=== PATIENT | male | born 1970 | race Caucasian/White ===

== ENCOUNTER 2020-05-30 17:48 | Outpatient (REF) | payer OTHER, SELFPAY ==
--- NOTE | 2020-05-30 17:49 | MR_ITS ---
EXAMINATION: MR ELBOW WITHOUT CONTRAST, LEFT CLINICAL INFORMATION: Pain in left upper arm COMPARISON: None TECHNIQUE: MR of the elbow without contrast was performed on a 1.5 Gianna axial scanner. FINDINGS: BONE AND JOINTS: No evidence of fracture. No effusion. No focal cartilage defects seen. Areas of mild increased T2, intermediate T1 signal in the radius, probably reflecting areas of red marrow. TENDONS AND MUSCLES: There is thinning of the biceps tendon diffusely, extending from the level of the myotendinous region to the biceps insertion. There are associated areas of irregularity. The findings raise concern for partial-thickness tearing of the tendon. This is of indeterminate age. Brachialis, triceps tendons intact. Common flexor and common extensor tendon origins are intact. No evidence of muscle tear. LIGAMENTS: Intact ULNAR NERVE: Within normal limits MR/MR elbow LT wo con IMPRESSION: 1. Abnormal findings of the biceps tendon, has the appearance of of partial-thickness tearing. This of indeterminate age. See details above. 2. Ligaments are intact. 3. Signal changes in the radius, probably reflecting areas of red marrow.
== END 2020-05-30 17:49 | disposition home or self-care (01) ==
LOC: HO.MRI 17:48
PROVIDERS: Visit Provider Hospitalist
DX: M79.622 Pain in left upper arm (principal)
CPT/HCPCS: 73221

== ENCOUNTER → 2020-06-06 10:00 | Outpatient (BNVA) | payer OTHER, SELFPAY | PROVIDERS: Visit Provider Orthopaedic Surgery | DX: S46.212A Strain of muscle, fascia and tendon of other parts of biceps, left arm, initial encounter (principal) | CPT/HCPCS: 99202 ==

== ENCOUNTER 2020-06-19 08:15 | Emergency (ER) | payer OTHER, SELFPAY ==
--- NOTE | 2020-06-19 08:28 | ECG_ITS ---
Test Reason : WEAKNESS Blood Pressure : / mmHG Vent. Rate : 101 BPM Atrial Rate : 101 BPM P-R Int : 144 ms QRS Dur : 078 ms QT Int : 328 ms P-R-T Axes : 024 -01 029 degrees QTc Int : 425 ms Sinus tachycardia Possible Inferior infarct , age undetermined Borderline ECG When compared with ECG of 06-FEB-2010 11:31, No significant change was found Referred By: Yanelis Ballard Electronically Signed By:ARELY CURIEL MD
--- NOTE | 2020-06-19 08:28 | XR_ITS ---
EXAMINATION: XR CHEST CLINICAL INFORMATION: Shortness of breath, chest tightness and cough and fever COMPARISON: Chest 06/09/2015 TECHNIQUE: Frontal view of the chest was obtained. FINDINGS: The lungs are hypoexpanded with scattered patchy densities in right midlung, right lower lobe, lingula and left lower lobe suspicious for developing infiltrates. No pleural effusion or pneumothorax seen. Heart size and pulmonary vascularity is normal. No gross bony abnormality. XR/XR chest 1V IMPRESSION: Hypoexpanded lungs with bilateral patchy opacities suspicious for developing infiltrates.
--- NOTE | 2020-06-19 08:33 | ED_ITS ---
HPI - URI/Sore Throat General Chief Complaint: Fever Stated Complaint: headache,dizzysob Time Seen by Provider: 06/19/20 08:21 Source: patient Mode of arrival: ambulatory Limitations: no limitations History of Present Illness HPI Narrative: 49 y/o male with history of DM, HTN, asthma presents with 4 days of fevers, body aches, cough. He presents today with chest tightness and SOB. He reports his symptoms are worsening. He denies sick contacts but his works here at the hospital. He denies N/V, abd pain but admits to decreased appetite and decreased PO intake. MD elicited complaint: fever, cough and nasal congestion Pertinent past history: asthma Onset (ago): day(s) (4) Consistency: constant Severity: moderate Able to tolerate fluids by mouth: Yes Exacerbating factors: exertion Relieving factors: nothing Associated symptoms: fever, chills, myalgias, headache, nasal congestion, cough, chest pain and shortness of breath Treatments prior to arrival: none Related Data Home Medications Medication Instructions Recorded Confirmed amlodipine 10 mg tablet 10 mg PO DAILY 05/18/20 05/18/20 atorvastatin 20 mg tablet 20 mg PO DAILY 05/18/20 05/18/20 baclofen 20 mg tablet 20 mg PO BID 05/18/20 05/18/20 bupropion HCl 150 mg tablet,12 hr 150 mg PO BID 05/18/20 05/18/20 sustained-release dulaglutide 1.5 mg/0.5 mL 3 mg TOPICAL QWEEK 05/18/20 05/18/20 subcutaneous pen injector ibuprofen 600 mg tablet 600 mg PO TID 05/18/20 05/18/20 metformin 500 mg tablet 500 mg PO BID 05/18/20 05/18/20 nabumetone 500 mg tablet 500 mg PO BID 05/18/20 05/18/20 Previous Rx's Medication Instructions Recorded tramadol 50 mg tablet 50 mg PO Q6-8H PRN #14 tab 05/18/20 diclofenac sodium 75 mg 75 mg PO BID #60 tab 06/06/20 tablet,delayed release albuterol sulfate 1 inh INHALATION QID PRN #6.7 g 06/19/20 azithromycin [Zithromax Z-Stevie] See Rx Instructions .ROUTE 06/19/20 .COMPLEX #6 tab Allergies Allergy/AdvReac Type Severity Reaction Status Date / Time Penicillins [PENICILLINS] Allergy Severe ANAPHALAXIS Unverified 03/16/20 16:28 ciprofloxacin [CIPROFLOXACIN] Allergy Intermediate RASH Unverified 03/16/20 16:28 metronidazole [METRONIDAZOLE] Allergy Mild RASH Unverified 03/16/20 16:28 ibuprofen [IBUPROFEN] Allergy Unknown UNKNOWN, Unverified 03/16/20 16:28 HISTORY OF ULCERS antibiotic Allergy Unknown Uncoded 05/07/19 00:00 Review of Systems Review of Systems: Constitutional: + Fever, +Chills ENT/Mouth: No sore throat, No Rhinorrhea, No Swallowing Difficulty Eyes: No Eye Pain, No Swelling, No Redness Cardiovascular: + Chest Pain, + SOB, No Orthopnea, No Edema Respiratory: + Cough, No Sputum, No Wheezing, + dyspnea Gastrointestinal: No Nausea, No Vomiting, No Diarrhea, No abdominal Pain Genitourinary: No Dysuria, No Urinary Frequency, No Hematuria Musculoskeletal: + joint pain, + Myalgias Skin: No Skin Lesions, No rash Neuro: No Weakness, No Numbness, + Dizziness, + Headache Psych: No Anxiety/Panic, No Depression Heme/Lymph: No Bruising, No Lymphadenopathy Endocrine: No Polyuria, No Polydipsia PMFSH Past Medical History Attestation statement: The following information was validated with the patient. Medical History (Updated 06/19/20 @ 12:30 by ROMELIA Craig) Diabetes Gout Hypertension Internal derangement of left knee Neuropathy Post-traumatic osteoarthritis of right knee Right knee pain Surgical History (Updated 06/02/20 @ 09:46 by Poornima Marquez CMA) H/O right knee surgery Family History Family History (Updated 06/02/20 @ 09:47 by Poornima Marquez CMA) Mother No problems noted. Father No problems noted. Social History Social History (Updated 06/02/20 @ 09:47 by Poornima Marquez CMA) Advance Directives: No Advance Directives Information Provided: No Current occupational status: unemployed Current occupation: Right Handed Physical Exam Vital Signs: Vital Signs: Last Vital Signs Temp 100.3 F 06/19/20 08:36 Pulse 84 06/19/20 12:37 Resp 18 06/19/20 12:37 BP 123/77 06/19/20 12:37 Pulse Ox 96 06/19/20 12:37 Body Mass Index 34.4 Appearance: Alert. Oriented X3. No acute distress. ENT: Pharynx normal. Neck: Normal inspection. Neck supple. CVS: Normal heart rate and rhythm. Pulses normal. Respiratory: Mild respiratory distress, coarse throughout with mild expiratory w heeze, increased RR, speaks in 3-4 word sentences Abdomen: Soft and nontender. +BS x4 Skin: Skin warm and dry. Normal skin color. Normal skin turgor. No rashes. Extremities: No lower extremity edema. Negative Jose's sign Neuro: Oriented X 3. No motor deficit. No sensory deficit. Course Course Course Narrative: 49 y/o male presenting with fevers, cough, SOB, body aches. Concern for COVID-19 vs influenza. Will get lab workup, EKG and CXR. He reports chest tightness so need to r/o ACS. Risk factors include DM and HTN. Reevaluation(s) Reevaluation #1: CXR shows patchy opacities concerning for developing infiltrates. Found to be COVID positive. Infiltrates consistent with viral pneumonia, not bacterial. Reevaluation #2: Tachycardia resolved, now 80-90's. SpO2 97% on room air. Repeat troponin pending (initial 13) - doubt ACS. EKG without ishcemic changes. Anticip ate d/c home. Reevaluation #3: Troponin trended down. Patient is stable for discharge. Patient counseled on diagnosis and warning signs to return to the hospital. MDM - URI/Sore Throat Differential Diagnosis Differential diagnosis: Likely upper respiratory infection, viral infection, bronchitis and influenza Medical Records Attestation: I reviewed the patient's medical records. Lab Data Attestation: I reviewed the patient's lab results. Result diagrams: 06/19/20 09:21 06/19/20 09:21 Labs: Lab Results 06/19/20 06/19/20 06/19/20 Range/Units 09:21 09:21 09:21 WBC 4.9 (4.8-10.8) X10*3/uL RBC 5.57 (4.60-5.80) X10*6/uL Hgb 14.6 (14.0-18.0) g/dl Hct 45.7 (42-52) % MCV 82.0 (80-98) fL MCH 26.2 L (27.0-33.0) pg MCHC 31.9 (31.0-36.0) g/dl RDW 14.0 (11.0-16.0) % Plt Count 228 (160-400) X10*3/uL MPV 11.2 (9.4-12.4) fL Immature Gran % (Auto) 0.2 (0.0-0.4) % Neut % (Auto) 62.6 (45-73) % Lymph % (Auto) 31.3 (20-40) % Converse % (Auto) 5.5 (2-11) % Eos % (Auto) 0.4 (0-4) % Baso % (Auto) 0.0 (0-2) % Lymph # (Auto) 1.5 (1.2-4.9) X10*3/uL Converse # (Auto) 0.3 (0.1-1.2) X10*3/uL Eos # (Auto) 0.0 (0.0-0.4) X10*3/uL Baso # (Auto) 0.0 (0.0-0.2) X10*3/uL Abs Immat Gran (auto) 0.01 (0.00-0.03) X10*3/uL Absolute Neuts (auto) 3.1 (2.0-8.3) X10*3/uL Absolute Nucleated RBC 0.000 (0.0-0.012) X10*3/uL Nucleated RBC % (auto) 0.0 (0.0-0.2) /100WBC D-Dimer 220 NG/ML Hold Blue Top SEE NOTE Sodium 136 (135-145) mmol/L Potassium 3.8 (3.3-5.1) mmol/l Chloride 101 (96-108) mmol/L Carbon Dioxide 26 (22-29) mmol/L Anion Gap 13 (12-20) BUN 11 (9-16) mg/dL Creatinine 1.28 (0.5-1.4) mg/dL Estim Creat Clear Calc 76.8 Estimated GFR 59 Random Glucose 228 H (60-115) mg/dL Lactic Acid (0.5-2.0) mmol/L Calcium 8.7 (8.4-10.2) mg/dL Magnesium (1.6-2.6) mg/dL Ferritin 346 H (20-250) ng/mL Total Bilirubin (0.0-1.0) mg/dL Direct Bilirubin (0.0-0.5) mg/dL AST (5-37) U/L ALT (0-40) U/L Alkaline Phosphatase (39-117) U/L Lactate Dehydrogenase (118-273) U/L Troponin I High Sens (<3.5-35.0) ng/L C-Reactive Protein 9.53 H (< or = 0.50) mg/dL Total Protein (6.5-8.0) g/dL Albumin (3.5-5.0) g/dL Procalcitonin ng/mL Coronavirus (PCR) Influenza Type A (PCR) Influenza Type B (PCR) RSV RNA Qual (PCR) 06/19/20 06/19/20 06/19/20 Range/Units 09:21 09:21 09:21 WBC (4.8-10.8) X10*3/uL RBC (4.60-5.80) X10*6/uL Hgb (14.0-18.0) g/dl Hct (42-52) % MCV (80-98) fL MCH (27.0-33.0) pg MCHC (31.0-36.0) g/dl RDW (11.0-16.0) % Plt Count (160-400) X10*3/uL MPV (9.4-12.4) fL Immature Gran % (Auto) (0.0-0.4) % Neut % (Auto) (45-73) % Lymph % (Auto) (20-40) % Converse % (Auto) (2-11) % Eos % (Auto) (0-4) % Baso % (Auto) (0-2) % Lymph # (Auto) (1.2-4.9) X10*3/uL Converse # (Auto) (0.1-1.2) X10*3/uL Eos # (Auto) (0.0-0.4) X10*3/uL Baso # (Auto) (0.0-0.2) X10*3/uL Abs Immat Gran (auto) (0.00-0.03) X10*3/uL Absolute Neuts (auto) (2.0-8.3) X10*3/uL Absolute Nucleated RBC (0.0-0.012) X10*3/uL Nucleated RBC % (auto) (0.0-0.2) /100WBC D-Dimer NG/ML Hold Blue Top Sodium (135-145) mmol/L Potassium (3.3-5.1) mmol/l Chloride (96-108) mmol/L Carbon Dioxide (22-29) mmol/L Anion Gap (12-20) BUN (9-16) mg/dL Creatinine (0.5-1.4) mg/dL Estim Creat Clear Calc Estimated GFR Random Glucose (60-115) mg/dL Lactic Acid (0.5-2.0) mmol/L Calcium (8.4-10.2) mg/dL Magnesium 2.0 (1.6-2.6) mg/dL Ferritin (20-250) ng/mL Total Bilirubin 0.3 (0.0-1.0) mg/dL Direct Bilirubin 0.2 (0.0-0.5) mg/dL AST 22 (5-37) U/L ALT 28 (0-40) U/L Alkaline Phosphatase 103 (39-117) U/L Lactate Dehydrogenase 206 (118-273) U/L Troponin I High Sens 13.0 (<3.5-35.0) ng/L C-Reactive Protein (< or = 0.50) mg/dL Total Protein 7.5 (6.5-8.0) g/dL Albumin 4.0 (3.5-5.0) g/dL Procalcitonin 0.10 ng/mL Coronavirus (PCR) Influenza Type A (PCR) Influenza Type B (PCR) RSV RNA Qual (PCR) 06/19/20 06/19/20 06/19/20 Range/Units 09:21 09:21 09:38 WBC (4.8-10.8) X10*3/uL RBC (4.60-5.80) X10*6/uL Hgb (14.0-18.0) g/dl Hct (42-52) % MCV (80-98) fL MCH (27.0-33.0) pg MCHC (31.0-36.0) g/dl RDW (11.0-16.0) % Plt Count (160-400) X10*3/uL MPV (9.4-12.4) fL Immature Gran % (Auto) (0.0-0.4) % Neut % (Auto) (45-73) % Lymph % (Auto) (20-40) % Converse % (Auto) (2-11) % Eos % (Auto) (0-4) % Baso % (Auto) (0-2) % Lymph # (Auto) (1.2-4.9) X10*3/uL Converse # (Auto) (0.1-1.2) X10*3/uL Eos # (Auto) (0.0-0.4) X10*3/uL Baso # (Auto) (0.0-0.2) X10*3/uL Abs Immat Gran (auto) (0.00-0.03) X10*3/uL Absolute Neuts (auto) (2.0-8.3) X10*3/uL Absolute Nucleated RBC (0.0-0.012) X10*3/uL Nucleated RBC % (auto) (0.0-0.2) /100WBC D-Dimer NG/ML Hold Blue Top Sodium (135-145) mmol/L Potassium (3.3-5.1) mmol/l Chloride (96-108) mmol/L Carbon Dioxide (22-29) mmol/L Anion Gap (12-20) BUN (9-16) mg/dL Creatinine (0.5-1.4) mg/dL Estim Creat Clear Calc Estimated GFR Random Glucose (60-115) mg/dL Lactic Acid 1.6 (0.5-2.0) mmol/L Calcium (8.4-10.2) mg/dL Magnesium (1.6-2.6) mg/dL Ferritin (20-250) ng/mL Total Bilirubin (0.0-1.0) mg/dL Direct Bilirubin (0.0-0.5) mg/dL AST (5-37) U/L ALT (0-40) U/L Alkaline Phosphatase (39-117) U/L Lactate Dehydrogenase (118-273) U/L Troponin I High Sens (<3.5-35.0) ng/L C-Reactive Protein (< or = 0.50) mg/dL Total Protein (6.5-8.0) g/dL Albumin (3.5-5.0) g/dL Procalcitonin ng/mL Coronavirus (PCR) Cancelled POSITIVE A Influenza Type A (PCR) Cancelled NEGATIVE Influenza Type B (PCR) Cancelled NEGATIVE RSV RNA Qual (PCR) Cancelled NEGATIVE 06/19/20 Range/Units 12:20 WBC (4.8-10.8) X10*3/uL RBC (4.60-5.80) X10*6/uL Hgb (14.0-18.0) g/dl Hct (42-52) % MCV (80-98) fL MCH (27.0-33.0) pg MCHC (31.0-36.0) g/dl RDW (11.0-16.0) % Plt Count (160-400) X10*3/uL MPV (9.4-12.4) fL Immature Gran % (Auto) (0.0-0.4) % Neut % (Auto) (45-73) % Lymph % (Auto) (20-40) % Converse % (Auto) (2-11) % Eos % (Auto) (0-4) % Baso % (Auto) (0-2) % Lymph # (Auto) (1.2-4.9) X10*3/uL Converse # (Auto) (0.1-1.2) X10*3/uL Eos # (Auto) (0.0-0.4) X10*3/uL Baso # (Auto) (0.0-0.2) X10*3/uL Abs Immat Gran (auto) (0.00-0.03) X10*3/uL Absolute Neuts (auto) (2.0-8.3) X10*3/uL Absolute Nucleated RBC (0.0-0.012) X10*3/uL Nucleated RBC % (auto) (0.0-0.2) /100WBC D-Dimer NG/ML Hold Blue Top Sodium (135-145) mmol/L Potassium (3.3-5.1) mmol/l Chloride (96-108) mmol/L Carbon Dioxide (22-29) mmol/L Anion Gap (12-20) BUN (9-16) mg/dL Creatinine (0.5-1.4) mg/dL Estim Creat Clear Calc Estimated GFR Random Glucose (60-115) mg/dL Lactic Acid (0.5-2.0) mmol/L Calcium (8.4-10.2) mg/dL Magnesium (1.6-2.6) mg/dL Ferritin (20-250) ng/mL Total Bilirubin (0.0-1.0) mg/dL Direct Bilirubin (0.0-0.5) mg/dL AST (5-37) U/L ALT (0-40) U/L Alkaline Phosphatase (39-117) U/L Lactate Dehydrogenase (118-273) U/L Troponin I High Sens 12.8 (<3.5-35.0) ng/L C-Reactive Protein (< or = 0.50) mg/dL Total Protein (6.5-8.0) g/dL Albumin (3.5-5.0) g/dL Procalcitonin ng/mL Coronavirus (PCR) Influenza Type A (PCR) Influenza Type B (PCR) RSV RNA Qual (PCR) ECG Data Attestation: I personally reviewed and interpreted this ECG as follows: ECG interpretation date: 06/19/20 ECG interpretation time: 10:04 Interpretation: sinus tachycardia, HR 101, normal, WI interval, normal QRS, no ischemic changes. Discharge Plan Discharge Clinical Impression: COVID-19 Patient Disposition: Home, Self-Care Instructions: COVID-19 (Coronavirus Disease 2019) (ED) Additional Instructions: You were found to be COVID positive today. Your oxygen levels remained normal during your time in the Emergency Department. Rest. Stay hydrated. Take over the counter cold/flu medications as needed for your symptoms. Take Motrin and/or Tylenol as needed for body aches and fevers. Take the prescribed medications as directed. Do not go out in public for the next 10-14 days. Follow up with your doctor this week. If you develop difficulty breathing, shortness of breath, worsening chest pain, or any other concerning symptom come back to the ER for further evaluation. Prescriptions: New azithromycin [Zithromax Z-Stevie] 250 mg tablet See Rx Instructions .ROUTE .COMPLEX Qty: 6 RF: 0 albuterol sulfate 90 mcg/actuation HFA aerosol inhaler 1 inh inhalation QID PRN (Reason: shortness of breath or wheezing) Qty: 6.7 RF: 0 No Action Trulicity 1.5 mg/0.5 mL pen injector 3 mg topical QWEEK RF: 0 nabumetone 500 mg tablet 500 mg PO BID RF: 0 atorvastatin 20 mg tablet 20 mg PO DAILY RF: 0 metformin 500 mg tablet 500 mg PO BID RF: 0 baclofen 20 mg tablet 20 mg PO BID RF: 0 ibuprofen 600 mg tablet 600 mg PO TID RF: 0 amlodipine 10 mg tablet 10 mg PO DAILY RF: 0 bupropion HCl 150 mg tablet sustained-release 12 hr 150 mg PO BID RF: 0 tramadol 50 mg tablet 50 mg PO Q6-8H PRN (Reason: pain) Qty: 14 RF: 0 diclofenac sodium 75 mg tablet,delayed release (DR/EC) 75 mg PO BID Qty: 60 RF: 2 Stand Alone Forms: Work/School Release
[2020-06-19 08:36] VITALS: BP 142/93; PULSE 115; RESP 22; TEMP 37.9; O2SAT 98; BMI 34.4
[2020-06-19] MEDS: 0.9 % Sodium Chloride 1,000 ML 999 ML IVCONT (09:23)
[2020-06-19] MEDS: Acetaminophen 325 MG TABLET 975 MG PO (09:23)
[2020-06-19 09:32] LABS: Eosinophils Percent Auto 0.4 % (0-4); Hematocrit 45.7 % (42-52); Hemoglobin 14.6 g/dl (14.0-18.0); Imm Gran Abs Auto 0.01 X10*3/uL (0.00-0.03); Imm Gran Pct Auto 0.2 % (0.0-0.4); Lymphocytes Absolute Auto 1.5 X10*3/uL (1.2-4.9); Lymphocytes Percent Auto 31.3 % (20-40); Mean Corpuscular HGB Conc 31.9 g/dl (31.0-36.0); Mean Corpuscular Hemoglobin 26.2 pg (27.0-33.0); Mean Platelet Volume 11.2 fL (9.4-12.4); Monocytes Absolute Auto 0.3 X10*3/uL (0.1-1.2); Monocytes Percent Auto 5.5 % (2-11); Neutrophils Absolute Auto 3.1 X10*3/uL (2.0-8.3); Neutrophils Percent Auto 62.6 % (45-73); Platelet Count 228 X10*3/uL (160-400); Red Blood Count 5.57 X10*6/uL (4.60-5.80); White Blood Count 4.9 X10*3/uL (4.8-10.8)
[2020-06-19 09:33] LABS: MANUAL DIFF FLAG NO
[2020-06-19 09:40] LABS: D Dimer 220 NG/ML
[2020-06-19 10:07] LABS: Anion Gap 13 (12-20); Blood Urea Nitrogen 11 mg/dL (9-16); C Reactive Protein 9.53 mg/dL (< or = 0.50); Calcium 8.7 mg/dL (8.4-10.2); Carbon Dioxide 26 mmol/L (22-29); Chloride 101 mmol/L (96-108); Creatinine Clr Calc Pharmacy 76.8; Estimated Glomerular Filt Rate 59; Glucose Random 228 mg/dL (60-115); Lactic Acid 1.6 mmol/L (0.5-2.0); Potassium 3.8 mmol/l (3.3-5.1); Sodium 136 mmol/L (135-145)
[2020-06-19 10:09] LABS: Alanine Aminotransferase 28 U/L (0-40); Alkaline Phosphatase 103 U/L (39-117); Aspartate Amino Transferase 22 U/L (5-37); Bilirubin Direct 0.2 mg/dL (0.0-0.5); Bilirubin Total 0.3 mg/dL (0.0-1.0); Lactate Dehydrogenase 206 U/L (118-273); Total Protein 7.5 g/dL (6.5-8.0)
[2020-06-19 10:22] LABS: Influenza A PCR NEGATIVE (Negative); Influenza B PCR NEGATIVE (Negative); Resp Syncy Virus RNA Qual PCR NEGATIVE (Negative); SARS COV2 PCR INHOUSE POSITIVE (Negative)
[2020-06-19 10:30] LABS: Ferritin 346 ng/mL (20-250)
[2020-06-19 12:37] VITALS: BP 123/77; PULSE 84; RESP 18; O2SAT 96
[2020-06-19 13:01] LABS: Troponin-I High Sensitivity 12.8 ng/L (<3.5-35.0)
== END 2020-06-19 14:09 | disposition home or self-care (01) ==
PROVIDERS: Physician Assistant; Emergency Provider Emergency Medicine; PCP Internal Medicine Geriatric Medicine
DX: U07.1 COVID-19 (principal); I10 Essential (primary) hypertension; E11.9 Type 2 diabetes mellitus without complications; Z79.84 Long term (current) use of oral hypoglycemic drugs; Z79.899 Other long term (current) drug therapy
CPT/HCPCS: 0241U; 36415; 71045; 80048; 80076; 82728; 83605; 83615; 83735; 84145; 84484; 85025; 85379; 86140; 87040; 93005; 96360; 99284

== ENCOUNTER 2022-08-26 15:18 | Inpatient (IN) | payer OTHER, SELFPAY ==
[2022-08-26] VITALS (12 sets, daily range): BP systolic 85–110; BP diastolic 49–77; PULSE 75–89; RESP 14–97; TEMP 36.6–36.8; O2SAT 94–100; BMI 31.3
--- NOTE | ~2022-08-26 | XR_ITS ---
EXAMINATION: XR CHEST CLINICAL INFORMATION: Chest pain. COMPARISON: Chest radiograph 06/19/2020. TECHNIQUE: 2 views of the chest were obtained. FINDINGS: Subtle focal asymmetric airspace opacities in the right lower lobe. Otherwise, clear lungs. No pleural effusion or pneumothorax. Normal appearance of the cardiomediastinal silhouette. No acute osseous abnormalities. The visualized upper abdomen is within normal limits. XR/XR chest 2V IMPRESSION: Subtle asymmetric airspace opacities in the right lower lobe which could be related with subsegmental atelectasis, aspiration or developing infiltrates.
--- NOTE | ~2022-08-26 | CT_ITS ---
EXAMINATION: CT CHEST, ABDOMEN AND PELVIS WITHOUT CONTRAST CLINICAL INFORMATION: Reason for Exam substernal chest pain and obstructive uropathy COMPARISON: CT abdomen pelvis 07/14/2019 TECHNIQUE: Multidetector volumetric imaging was performed from the thoracic inlet through the pubic symphysis without IV contrast. Sagittal and coronal reformatted images were obtained on the technologist's workstation. This CT examination was performed using dose optimization techniques as appropriate, variously including the following: *Automated exposure control *Adjustment of mA and/or kV according to patient size (this includes techniques or standardized protocols for targeted exams where dose is matched to indication/reason for exam; i.e. extremities or head) *Use of iterative reconstruction technique DLP: 702 mGy-cm for abdomen 335 mGy-cm for chest FINDINGS: CHEST: Lung: There is a 4 mm calcified granuloma in the right lower lobe measuring 270 Hounsfield units (7:285). The lungs are otherwise clear without worrisome focal opacity or nodule. Mediastinum: The mediastinum is normal. The central vascular structures are unremarkable. No hilar or mediastinal lymphadenopathy. No coronary artery calcium is seen. Pericardium/Pleura: No significant effusion. No pleural mass or thickening. Chest Wall/Axilla: Unremarkable ABDOMEN/PELVIS: Peritoneal Space: No significant free air or free fluid identified. Liver, Gallbladder, Biliary Tree: The liver is enlarged measuring 19.4 cm in cephalocaudad dimension and demonstrates decreased attenuation consistent with hepatic steatosis. There is focal fatty sparing around the gallbladder. There is a benign cyst measuring 1.9 cm at the tip of the right lobe of the liver which needs no follow-up. No worrisome solid focal hepatic lesion or biliary ductal dilatation is present. The gallbladder is contracted but otherwise unremarkable with no evidence of radiopaque gallstones, gallbladder wall thickening, or obvious pericholecystic inflammatory changes. Pancreas: Unremarkable Spleen: Unremarkable Adrenal Glands: Unremarkable Kidneys and Ureters: The kidneys are normal in size, shape, and attenuation. No hydronephrosis, hydroureter, or calculi seen. No worrisome perinephric stranding. Bladder: Mild symmetric bladder wall thickening. Gastrointestinal Tract: The small and large bowel are unremarkable aside from colonic diverticula without diverticulitis. The appendix is unremarkable. Abdominal Wall: No significant hernia is appreciated. Lymph Nodes: No retroperitoneal lymphadenopathy. Vascular: The aorta appears normal.. The IVC appears unremarkable. PELVIC VISCERA: The prostate and seminal vesicles are unremarkable. OSSEUS STRUCTURES: Mild degenerative changes are noted in the spine. No bony destructive lesions are seen. CT/CT abdomen pelvis wo IV con IMPRESSION: 1. A cause for the patient's substernal chest pain is not found and there is no obstructive uropathy. 2. Incidental note made of an enlarged fatty liver, benign hepatic cyst, colonic diverticula and mild symmetric bladder wall thickening. Fleischner guidelines were followed.
--- NOTE | 2022-08-26 15:45 | ED_ITS ---
HPI - Chest Pain General Chief Complaint: General Medical <ROMELIA Craig - Last Filed: 08/26/22 15:50> Stated Complaint: dizziness, low blood comgrewl44/55 <ROMELIA Craig - Last Filed: 08/26/22 15:50> Time Seen by Provider: 08/26/22 20:12 <ROMELIA Craig - Last Filed: 08/26/22 15:50> Source: patient <ROMELIA Giles - Last Filed: 08/26/22 23:37> Mode of arrival: ambulatory <ROMELIA Giles - Last Filed: 08/26/22 23:37> Limitations: no limitations <ROMELIA Giles - Last Filed: 08/26/22 23:37> History of Present Illness HPI narrative: This is a 52-year-old male history of hypertension presenting to the emergency department for evaluation of dizziness, low blood pressures, left- sided nonradiating chest pressure that started this morning. Patient tells me he woke with all the symptoms. Describes dizziness is a lightheaded, he tells me he feels dizzy when he changes positions as well. He tells me he checked his blood pressure at home which was low. Reports that he is experiencing at this time a very mild left-sided chest pressure without radiation. Denies chest trauma patient tells me he drinks alcohol last drink was about 3 days ago he tells me he drinks socially however. Patient denies drug use at this time however used to use cocaine. Patient denies fevers, chills, nausea, vomiting, abdominal pain, changes in urination or bowel habits, sick contacts, vision changes, headache NIH stroke scale on arrival is 0. <ROMELIA Giles - Last Filed: 08/26/22 23:37> Related Data Home Medications: Home Medications Medication Instructions Recorded Confirmed amlodipine 10 mg tablet 10 mg PO DAILY 05/18/20 05/18/20 atorvastatin 20 mg tablet 20 mg PO DAILY 05/18/20 05/18/20 baclofen 20 mg tablet 20 mg PO BID 05/18/20 05/18/20 bupropion HCl 150 mg tablet,12 hr 150 mg PO BID 05/18/20 05/18/20 sustained-release dulaglutide 1.5 mg/0.5 mL 3 mg topical QWEEK 05/18/20 05/18/20 subcutaneous pen injector ibuprofen 600 mg tablet 600 mg PO TID 05/18/20 05/18/20 metformin 500 mg tablet 500 mg PO BID 05/18/20 05/18/20 nabumetone 500 mg tablet 500 mg PO BID 05/18/20 05/18/20 Previous Rx's Medication Instructions Recorded tramadol 50 mg tablet 50 mg PO Q6-8H PRN pain #14 tabs 05/18/20 diclofenac sodium 75 mg 75 mg PO BID #60 tabs 06/06/20 tablet,delayed release albuterol sulfate 90 mcg/actuation 1 inh inhalation QID PRN shortness 06/19/20 aerosol inhaler of breath or wheezing #6.7 grams azithromycin 250 mg tablet See Rx Instructions PO .COMPLEX #6 06/19/20 (Zithromax Z-Stevie) tabs <ROMELIA Craig - Last Filed: 08/26/22 15:50> Allergies/Adverse Reactions: Allergies Allergy/AdvReac Type Severity Reaction Status Date / Time Penicillins [PENICILLINS] Allergy Severe ANAPHALAXIS Verified 08/26/22 15:49 ciprofloxacin [CIPROFLOXACIN] Allergy Intermediate RASH Unverified 03/16/20 16 :28 metronidazole [METRONIDAZOLE] Allergy Mild RASH Unverified 03/16/20 16:28 ibuprofen [IBUPROFEN] Allergy Unknown UNKNOWN, Unverified 03/16/20 16:28 HISTORY OF ULCERS <ROMELIA Craig Last Filed: 08/26/22 15:50> Review of Systems Review of Systems: Constitutional : No Weight loss, No Fever, No Chills, No Fatigue, No Malaise ENT/Mouth : No sore throat, No Rhinorrhea Eyes: No Eye Pain, No Swelling, No Redness Cardiovascular : + Chest Pain, No SOB, No Dyspnea on Exertion, No Orthopnea, No Edema, No Palpitations Respiratory : No Cough, No Sputum, No Wheezing Gastrointestinal : No Nausea, No Vomiting, No Diarrhea, No Constipation, No abdominal Pain, No Hematochezia, No Melena Genitourinary : No Dysuria, No Urinary Frequency, No Hematuria, Musculoskeletal : No joint pain, No Myalgias, No Joint Swelling Skin : No Skin Lesions, No rash Neuro : No Weakness, No Numbness, + Dizziness, No Headache Psych : No Anxiety/Panic, No Depression All other systems reviewed and are negative <ROMELIA Giles - Last Filed: 08/26/22 23:37> Yes all other systems are reviewed and are negative <ROMELIA Giles - Last Filed: 08/26/22 23:37> [facility] Past Medical History Attestation statement: The following information was validated with the patient. <ROMELIA Giles - Last Filed: 08/26/22 23:37> Source: old records reviewed and nursing notes reviewed <ROMELIA Giles - Last Filed: 08/26/22 23:37> Medical History: Medical History Diabetes Gout Hypertension Internal derangement of left knee Neuropathy Post-traumatic osteoarthritis of right knee Right knee pain <ROMELIA Craig - Last Filed: 08/26/22 15:50> Surgical History: Surgical History H/O right knee surgery <ROMELIA Craig - Last Filed: 08/26/22 15:50> Family History Family History: Family History Mother No problems noted. Father No problems noted. <ROMELIA Craig - Last Filed: 08/26/22 15:50> Social History Social History: Social History Smoked in Last 30 Days: No Use of substances other than those prescribed or required for medical reasons: No Advance Directives: No Advance Directives Information Provided: No Current occupational status: unemployed Current occupation: Right Handed <ROMELIA Craig - Last Filed: 08/26/22 15:50> Physical Exam Vital Signs: Vital Signs: Last Vital Signs Temp 98.1 F 08/26/22 22:53 Pulse 77 08/26/22 23:20 Resp 14 08/26/22 23:20 BP 102/72 08/26/22 23:20 Pulse Ox 99 08/26/22 23:20 O2 Del Method 02/27/23 23:20 BMI result Body Mass Index 31.3 <ROMELIA Craig - Last Filed: 08/26/22 15:50> Vital Signs: Last Vital Signs Temp 98.1 F 08/26/22 22:53 Pulse 77 08/26/22 23:20 Resp 14 08/26/22 23:20 BP 102/72 08/26/22 23:20 Pulse Ox 99 08/26/22 23:20 O2 Del Method 08/26/22 23:20 BMI result Body Mass Index 31.3 vss <ROMELIA Giles - Last Filed: 08/26/22 23:37> Appearance: Alert.? Oriented X3.? No acute distress.? Head: Normocephalic, atraumatic, no step-offs or deformities Eyes: Pupils equal, round and reactive to light.? Neck: Normal inspection.? Neck supple.? CVS: Normal heart rate and rhythm.? Pulses normal.? Respiratory: No respiratory distress.? Breath sounds normal.? Abdomen: Soft and nontender.? Skin: Skin warm and dry.? Normal skin color.? Normal skin turgor.? Extremities: No lower extremity edema.? No calf ttp. 5/5 strength to bilateral upper and lower extremities Neuro: Oriented X 3.? No motor deficit.? No sensory deficit. CN 2-12 intact . Normal [id number], [id number], steady tandem gait with normal coordination. <ROMELIA Giles - Last Filed: 08/26/22 23:37> Course Course Course Narrative: RME - 52 y/o male with history of HTN, DM, presents to the ER for evaluation of left sided chest pressure/pain that woke him up out of sleep this morning. He took his BP and it 75/55 and he was dizzy. He reports taking his BP meds today. No SOB or nausea. BP in triage 95/65 w/ MAP 74. Plan. EKG, labs, orthostatics. <ROMELIA Craig - Last Filed: 08/26/22 15:50> Reevaluation(s) Reevaluation #1: Patient's CBC with slightly elevated red blood cells likely hemoconcentration secondary to dehydration. Chemistry with sodium of 132, receiving IV fluids at this time also noted to have elevated BUN and creatinine consistent with acute kidney injury likely secondary to dehydration. Random glucose 473 given 9 units of IV insulin at this time. Lactic acid negative. Troponin negative, EKG nonischemic. UA with no signs of acute infection. Patient reports slight improvement in symptoms with fluids Patient's CT scan with no acute findings in the chest, no signs of obstructive uropathy and a CT of abdomen and pelvis. Incidental note of fatty liver, hepatic cysts, colonic diverticula and bladder wall thickening. Patient reports that his symptoms are slightly improved with fluids. <ROMELIA Giles - Last Filed: 08/26/22 23:37> Time: 23:35 <ROMELIA Giles - Last Filed: 08/26/22 23:37> Reevaluation #2: Patient will be admitted for orthostatic dizziness, dehydration, acute kidney injury. <ROMELIA Giles - Last Filed: 08/26/22 23:37> Medications Administered Discontinued Medications Generic Name Dose Route Start Last Admin Trade Name Freq PRN Reason Stop Dose Admin Sodium Chloride 1,000 mls @ 999 mls/hr 08/26/22 19:00 08/26/22 21:45 Ns IVCONT 08/26/22 20:00 Infused .Q1H1M RANDALL Infusion Sodium Chloride 1,000 mls @ 999 mls/hr 08/26/22 20:45 08/26/22 23:20 Ns IV 08/26/22 21:45 Infused .Q1H1M RANDALL Infusion Levofloxacin 750 mg in 150 mls @ 100 mls/hr 08/26/22 20:35 08/26/22 23:15 Levaquin IV 08/26/22 22:04 Infused ONCE ONE Infusion Sodium Chloride 1,000 mls @ 999 mls/hr 08/26/22 21:30 08/26/22 23:20 Ns IV 08/26/22 22:30 Infused .Q1H1M RANDALL Infusion <ROMELIA Craig - Last Filed: 08/26/22 15:50> Medications Administered Discontinued Medications Generic Name Dose Route Start Last Admin Trade Name Freq PRN Reason Stop Dose Admin Sodium Chloride 1,000 mls @ 999 mls/hr 08/26/22 19:00 08/26/22 21:45 Ns IVCONT 08/26/22 20:00 Infused .Q1H1M RANDALL Infusion Sodium Chloride 1,000 mls @ 999 mls/hr 08/26/22 20:45 08/26/22 23:20 Ns IV 08/26/22 21:45 Infused .Q1H1M RANDALL Infusion Levofloxacin 750 mg in 150 mls @ 100 mls/hr 08/26/22 20:35 08/26/22 23:15 Levaquin IV 08/26/22 22:04 Infused ONCE ONE Infusion Sodium Chloride 1,000 mls @ 999 mls/hr 08/26/22 21:30 08/26/22 23:20 Ns IV 08/26/22 22:30 Infused .Q1H1M RANDALL Infusion <ROMELIA Giles - Last Filed: 08/26/22 23:37> Medical Decision Making Medical Decision Making [facility] Narrative: 2014 This 52-year-old male presents with dizziness, weakness, chest discomfort since this morning. On arrival NIH stroke scale 0. Physical examination benign however upon review of patient's vital signs patient's pressure is noted to be soft. Concerns for possible orthostatic hypotension, electrolyte abnormalities, dysrhythmias. Unlikely stroke or posterior stroke. Chest discomfort likely noncardiac related chest pain low suspicion for PE or ACS. Other differentials include dehydration. Will rule out UTI, infection. Plan at this time basic labs, imaging, chest x-ray. These were ordered from triage. Upon it review of laboratory studies patient is noted to have an acute kidney injury and soft pressures. Will rule out for potential causes for infection. Will also rule out postobstructive uropathy that could be causing an acute kidney injury. Patient's chest x-ray does show subtle asymmetric airspace opacities in the right lower lobe which could be related to atelectasis versus aspiration or developing infiltrates, chest CT ordered for further evaluation of this. Initially did want to do a CT angio of chest however patient with EDMUND therefore will do dry imaging. Will add on blood cultures, lactic acid in cover patient with levofloxacin for broad coverage. Patient does have allergies to penicillin therefore will stay away from a penicillin based antibiotic and cephalosporins as he does have an anaphylactic reaction. <ROMELIA Giles - Last Filed: 08/26/22 23:37> Differential Diagnosis Differential Diagnoses: The differential diagnosis associated with the presentation includes <ROMELIA Giles - Last Filed: 08/26/22 23:37> Concerns for possible orthostatic hypotension, electrolyte abnormalities, dysrhythmias. Unlikely stroke or posterior stroke. Chest discomfort likely noncardiac related chest pain low suspicion for PE or ACS. Other differentials include dehydration. Will rule out UTI, infection. <ROMELIA Giles - Last Filed: 08/26/22 23:37> Admission/Observation Consideration of admission/observation: Escalation of care including admission/observation considered <ROMELIA Giles - Last Filed: 08/26/22 23:37> Lab Data MDM Lab Attestation statement: I reviewed the patient's lab results. <ROMELIA Giles - Last Filed: 08/26/22 23:37> Result Diagrams: 08/26/22 17:16 08/26/22 17:16 <ROMELIA Craig - Last Filed: 08/26/22 15:50> Labs: Lab Results 08/26/22 08/26/22 08/26/22 Range/Units 17:16 17:16 17:16 WBC 7.1 (4.8-10.8) X10*3/uL RBC 6.02 H (4.60-5.80) X10*6/uL Hgb 15.3 (14.0-18.0) g/dl Hct 47.5 (42.0-52.0) % MCV 78.9 L (80.0-98.0) fL MCH 25.4 L (27.0-33.0) pg MCHC 32.2 (31.0-36.0) g/dl RDW 13.8 (11.0-16.0) % Plt Count 248 (160-400) X10*3/uL MPV 11.5 (9.4-12.4) fL Immature Gran % (Auto) 0.4 (0.0-0.4) % Neut % (Auto) 63.8 (45-73) % Lymph % (Auto) 25.9 (20-40) % [place] % (Auto) 8.3 (2-11) % Eos % (Auto) 1.3 (0-4) % Baso % (Auto) 0.3 (0-2) % Lymph # (Auto) 1.8 (1.2-4.9) X10*3/uL [place] # (Auto) 0.6 (0.1-1.2) X10*3/uL Eos # (Auto) 0.1 (0.0-0.4) X10*3/uL Baso # (Auto) 0.0 (0.0-0.2) X10*3/uL Abs Immat Gran (auto) 0.03 (0.00-0.03) X10*3/uL Absolute Neuts (auto) 4.5 (2.0-8.3) x10*3/uL Absolute Nucleated RBC 0.000 (0.0-0.012) X10*3/uL Nucleated RBC % (auto) 0.0 (0.0-0.2) /100WBC Sodium 132 L (135-145) mmol/L Potassium 3.8 (3.3-5.1) mmol/L Chloride 94 L (96-108) mmol/L Carbon Dioxide 27 (22-29) mmol/L Anion Gap 15 (12-20) BUN 27 H (9-16) mg/dL Creatinine 2.92 H (0.5-1.4) mg/dL Estim Creat Clear Calc 31.0 Estimated GFR 23 Random Glucose 473 H* (60-115) mg/dL Lactic Acid (0.5-2.0) mmol/L Calcium 9.0 (8.4-10.2) mg/dL Magnesium 2.0 (1.6-2.6) mg/dL Total Bilirubin 0.6 (0.0-1.0) mg/dL Direct Bilirubin 0.2 (0.0-0.5) mg/dL AST 14 (5-37) U/L ALT 28 (0-40) U/L Alkaline Phosphatase 103 (39-117) U/L Troponin I High Sens 6.4 (<3.5-35.0) ng/L Total Protein 7.7 (6.5-8.0) g/dL Albumin 4.0 (3.5-5.0) g/dL Urine Color Urine Appearance Urine pH (5.0-9.0) Ur Specific [place] (1.005-1.025) Urine Protein (Neg-Trace) mg/dL Urine Glucose (UA) (Negative) mg/dL Urine Ketones (Negative) mg/dL Urine Blood (Negative) Urine Nitrite (Negative) Ur Leukocyte Esterase (Negative) Urine RBC (0-2) /HPF Urine WBC (0-5) /HPF Ur Squamous Epith Cells (0-2) /HPF Urine Bacteria (None Seen) Hyaline Casts (0-2) /LPF Granular Casts COVID-19 (DORIAN) (Negative) COVID-19 Clin Com 08/26/22 08/26/22 08/26/22 Range/Units 17:16 20:29 22:57 WBC (4.8-10.8) X10*3/uL RBC (4.60-5.80) X10*6/uL Hgb (14.0-18.0) g/dl Hct (42.0-52.0) % MCV (80.0-98.0) fL MCH (27.0-33.0) pg MCHC (31.0-36.0) g/dl RDW (11.0-16.0) % Plt Count (160-400) X10*3/uL MPV (9.4-12.4) fL Immature Gran % (Auto) (0.0-0.4) % Neut % (Auto) (45-73) % Lymph % (Auto) (20-40) % [place] % (Auto) (2-11) % Eos % (Auto) (0-4) % Baso % (Auto) (0-2) % Lymph # (Auto) (1.2-4.9) X10*3/uL [place] # (Auto) (0.1-1.2) X10*3/uL Eos # (Auto) (0.0-0.4) X10*3/uL Baso # (Auto) (0.0-0.2) X10*3/uL Abs Immat Gran (auto) (0.00-0.03) X10*3/uL Absolute Neuts (auto) (2.0-8.3) x10*3/uL Absolute Nucleated RBC (0.0-0.012) X10*3/uL Nucleated RBC % (auto) (0.0-0.2) /100WBC Sodium (135-145) mmol/L Potassium (3.3-5.1) mmol/L Chloride (96-108) mmol/L Carbon Dioxide (22-29) mmol/L Anion Gap (12-20) BUN (9-16) mg/dL Creatinine (0.5-1.4) mg/dL Estim Creat Clear Calc Estimated GFR Random Glucose (60-115) mg/dL Lactic Acid 1.7 (0.5-2.0) mmol/L Calcium (8.4-10.2) mg/dL Magnesium (1.6-2.6) mg/dL Total Bilirubin (0.0-1.0) mg/dL Direct Bilirubin (0.0-0.5) mg/dL AST (5-37) U/L ALT (0-40) U/L Alkaline Phosphatase (39-117) U/L Troponin I High Sens (<3.5-35.0) ng/L Total Protein (6.5-8.0) g/dL Albumin (3.5-5.0) g/dL Urine Color Yellow Urine Appearance Clear Urine pH 5.0 (5.0-9.0) Ur Specific [place] 1.015 (1.005-1.025) Urine Protein 30 (1+) H (Neg-Trace) mg/dL Urine Glucose (UA) >=1000 H (Negative) mg/dL Urine Ketones Negative (Negative) mg/dL Urine Blood Negative (Negative) Urine Nitrite Negative (Negative) Ur Leukocyte Esterase Negative (Negative) Urine RBC 0-2 (0-2) /HPF Urine WBC 0-5 (0-5) /HPF Ur Squamous Epith Cells 3-5 (0-2) /HPF Urine Bacteria Trace (None Seen) Hyaline Casts 6-10 (0-2) /LPF Granular Casts Present COVID-19 (DORIAN) Negative (Negative) COVID-19 Clin Com See Note <ROMELIA Craig - Last Filed: 08/26/22 15:50> Lab Results 08/26/22 08/26/22 08/26/22 Range/Units 17:16 17:16 17:16 WBC 7.1 (4.8-10.8) X10*3/uL RBC 6.02 H (4.60-5.80) X10*6/uL Hgb 15.3 (14.0-18.0) g/dl Hct 47.5 (42.0-52.0) % MCV 78.9 L (80.0-98.0) fL MCH 25.4 L (27.0-33.0) pg MCHC 32.2 (31.0-36.0) g/dl RDW 13.8 (11.0-16.0) % Plt Count 248 (160-400) X10*3/uL MPV 11.5 (9.4-12.4) fL Immature Gran % (Auto) 0.4 (0.0-0.4) % Neut % (Auto) 63.8 (45-73) % Lymph % (Auto) 25.9 (20-40) % [place] % (Auto) 8.3 (2-11) % Eos % (Auto) 1.3 (0-4) % Baso % (Auto) 0.3 (0-2) % Lymph # (Auto) 1.8 (1.2-4.9) X10*3/uL [place] # (Auto) 0.6 (0.1-1.2) X10*3/uL Eos # (Auto) 0.1 (0.0-0.4) X10*3/uL Baso # (Auto) 0.0 (0.0-0.2) X10*3/uL Abs Immat Gran (auto) 0.03 (0.00-0.03) X10*3/uL Absolute Neuts (auto) 4.5 (2.0-8.3) x10*3/uL Absolute Nucleated RBC 0.000 (0.0-0.012) X10*3/uL Nucleated RBC % (auto) 0.0 (0.0-0.2) /100WBC Sodium 132 L (135-145) mmol/L Potassium 3.8 (3.3-5.1) mmol/L Chloride 94 L (96-108) mmol/L Carbon Dioxide 27 (22-29) mmol/L Anion Gap 15 (12-20) BUN 27 H (9-16) mg/dL Creatinine 2.92 H (0.5-1.4) mg/dL Estim Creat Clear Calc 31.0 Estimated GFR 23 Random Glucose 473 H* (60-115) mg/dL Lactic Acid (0.5-2.0) mmol/L Calcium 9.0 (8.4-10.2) mg/dL Magnesium 2.0 (1.6-2.6) mg/dL Total Bilirubin 0.6 (0.0-1.0) mg/dL Direct Bilirubin 0.2 (0.0-0.5) mg/dL AST 14 (5-37) U/L ALT 28 (0-40) U/L Alkaline Phosphatase 103 (39-117) U/L Troponin I High Sens 6.4 (<3.5-35.0) ng/L Total Protein 7.7 (6.5-8.0) g/dL Albumin 4.0 (3.5-5.0) g/dL Urine Color Urine Appearance Urine pH (5.0-9.0) Ur Specific [place] (1.005-1.025) Urine Protein (Neg-Trace) mg/dL Urine Glucose (UA) (Negative) mg/dL Urine Ketones (Negative) mg/dL Urine Blood (Negative) Urine Nitrite (Negative) Ur Leukocyte Esterase (Negative) Urine RBC (0-2) /HPF Urine WBC (0-5) /HPF Ur Squamous Epith Cells (0-2) /HPF Urine Bacteria (None Seen) Hyaline Casts (0-2) /LPF Granular Casts COVID-19 (DORIAN) (Negative) COVID-19 Clin Com 08/26/22 08/26/22 08/26/22 Range/Units 17:16 20:29 22:57 WBC (4.8-10.8) X10*3/uL RBC (4.60-5.80) X10*6/uL Hgb (14.0-18.0) g/dl Hct (42.0-52.0) % MCV (80.0-98.0) fL MCH (27.0-33.0) pg MCHC (31.0-36.0) g/dl RDW (11.0-16.0) % Plt Count (160-400) X10*3/uL MPV (9.4-12.4) fL Immature Gran % (Auto) (0.0-0.4) % Neut % (Auto) (45-73) % Lymph % (Auto) (20-40) % [place] % (Auto) (2-11) % Eos % (Auto) (0-4) % Baso % (Auto) (0-2) % Lymph # (Auto) (1.2-4.9) X10*3/uL [place] # (Auto) (0.1-1.2) X10*3/uL Eos # (Auto) (0.0-0.4) X10*3/uL Baso # (Auto) (0.0-0.2) X10*3/uL Abs Immat Gran (auto) (0.00-0.03) X10*3/uL Absolute Neuts (auto) (2.0-8.3) x10*3/uL Absolute Nucleated RBC (0.0-0.012) X10*3/uL Nucleated RBC % (auto) (0.0-0.2) /100WBC Sodium (135-145) mmol/L Potassium (3.3-5.1) mmol/L Chloride (96-108) mmol/L Carbon Dioxide (22-29) mmol/L Anion Gap (12-20) BUN (9-16) mg/dL Creatinine (0.5-1.4) mg/dL Estim Creat Clear Calc Estimated GFR Random Glucose (60-115) mg/dL Lactic Acid 1.7 (0.5-2.0) mmol/L Calcium (8.4-10.2) mg/dL Magnesium (1.6-2.6) mg/dL Total Bilirubin (0.0-1.0) mg/dL Direct Bilirubin (0.0-0.5) mg/dL AST (5-37) U/L ALT (0-40) U/L Alkaline Phosphatase (39-117) U/L Troponin I High Sens (<3.5-35.0) ng/L Total Protein (6.5-8.0) g/dL Albumin (3.5-5.0) g/dL Urine Color Yellow Urine Appearance Clear Urine pH 5.0 (5.0-9.0) Ur Specific [place] 1.015 (1.005-1.025) Urine Protein 30 (1+) H (Neg-Trace) mg/dL Urine Glucose (UA) >=1000 H (Negative) mg/dL Urine Ketones Negative (Negative) mg/dL Urine Blood Negative (Negative) Urine Nitrite Negative (Negative) Ur Leukocyte Esterase Negative (Negative) Urine RBC 0-2 (0-2) /HPF Urine WBC 0-5 (0-5) /HPF Ur Squamous Epith Cells 3-5 (0-2) /HPF Urine Bacteria Trace (None Seen) Hyaline Casts 6-10 (0-2) /LPF Granular Casts Present COVID-19 (DORIAN) Negative (Negative) COVID-19 Clin Com See Note <ROMELIA Giles - Last Filed: 08/26/22 23:37> Independent Interpretation I performed an independent interpretation of an: Plain X-Ray (XR/XR chest 2V IMPRESSION: Subtle asymmetric airspace opacities in the right lower lobe which could be related with subsegmental atelectasis, aspiration or developing infiltrates. ) <ROMELIA Giles - Last Filed: 08/26/22 23:37> Radiology Impression Discussion of test interpretation with radiology: I have reviewed the radiologist's reading. <ROMELIA Giles - Last Filed: 08/26/22 23:37> Core Measures AMI core measures followed: Yes <ROMELIA Giles - Last Filed: 08/26/22 23:37> Measure exclusions: not indicated <ROMELIA Giles - Last Filed: 08/26/22 23:37> Critical Care Time Critical Care Time Critical Care Time: No <ROMELIA Giles - Last Filed: 08/26/22 23:37> Discharge Plan Discharge Clinical Impression: Orthostatic hypotension, Dehydration, EDMUND (acute kidney injury) <ROMELIA Craig - Last Filed: 08/26/22 15:50> Patient Disposition: Admitted As Inpatient <ROMELIA Craig - Last Filed: 08/26/22 15:50> Prescriptions: No Action azithromycin [Zithromax Z-Stevie] 250 mg tablet See Rx Instructions .ROUTE .COMPLEX Qty: 6 0RF Rx Instructions: take 500 mg today (day 1), then 250 mg for 4 days (days 2-5) albuterol sulfate 90 mcg/actuation HFA aerosol inhaler 1 inh inhalation QID PRN (Reason: shortness of breath or wheezing) Qty: 6.7 0RF Trulicity 1.5 mg/0.5 mL pen injector 3 mg topical QWEEK nabumetone 500 mg tablet 500 mg PO BID atorvastatin 20 mg tablet 20 mg PO DAILY metformin 500 mg tablet 500 mg PO BID baclofen 20 mg tablet 20 mg PO BID ibuprofen 600 mg tablet 600 mg PO TID amlodipine 10 mg tablet 10 mg PO DAILY bupropion HCl 150 mg tablet sustained-release 12 hr 150 mg PO BID tramadol 50 mg tablet 50 mg PO Q6-8H PRN (Reason: pain) Qty: 14 0RF diclofenac sodium 75 mg tablet,delayed release (DR/EC) 75 mg PO BID Qty: 60 2RF <ROMELIA Craig - Last Filed: 08/26/22 15:50>
--- NOTE | 2022-08-26 15:47 | ECG_ITS ---
Test Reason : CHEST PRESSURE Blood Pressure : / mmHG Vent. 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
[2022-08-26 17:21] LABS: MANUAL DIFF FLAG NO
[2022-08-26 17:25] LABS: Basophils Percent Auto 0.3 % (0-2); Eosinophils Absolute Auto 0.1 X10*3/uL (0.0-0.4); Eosinophils Percent Auto 1.3 % (0-4); Hematocrit 47.5 % (42.0-52.0); Hemoglobin 15.3 g/dl (14.0-18.0); Imm Gran Abs Auto 0.03 X10*3/uL (0.00-0.03); Imm Gran Pct Auto 0.4 % (0.0-0.4); Lymphocytes Absolute Auto 1.8 X10*3/uL (1.2-4.9); Lymphocytes Percent Auto 25.9 % (20-40); Mean Corpuscular HGB Conc 32.2 g/dl (31.0-36.0); Mean Corpuscular Hemoglobin 25.4 pg (27.0-33.0); Mean Corpuscular Volume 78.9 fL (80.0-98.0); Mean Platelet Volume 11.5 fL (9.4-12.4); Monocytes Absolute Auto 0.6 X10*3/uL (0.1-1.2); Monocytes Percent Auto 8.3 % (2-11); Neutrophils Absolute Auto 4.5 x10*3/uL (2.0-8.3); Neutrophils Percent Auto 63.8 % (45-73); Platelet Count 248 X10*3/uL (160-400); Red Blood Count 6.02 X10*6/uL (4.60-5.80); Red Cell Distribution Width 13.8 % (11.0-16.0); White Blood Count 7.1 X10*3/uL (4.8-10.8)
[2022-08-26 17:40] LABS: COVID-19 Test Negative (Negative); IDNOW Serial# BCCEAD1C
[2022-08-26 17:48] LABS: Alanine Aminotransferase 28 U/L (0-40); Alkaline Phosphatase 103 U/L (39-117); Anion Gap 15 (12-20); Aspartate Amino Transferase 14 U/L (5-37); Bilirubin Direct 0.2 mg/dL (0.0-0.5); Bilirubin Total 0.6 mg/dL (0.0-1.0); Blood Urea Nitrogen 27 mg/dL (9-16); Carbon Dioxide 27 mmol/L (22-29); Chloride 94 mmol/L (96-108); Estimated Glomerular Filt Rate 23; Glucose Random 473 mg/dL (60-115); Potassium 3.8 mmol/L (3.3-5.1); Sodium 132 mmol/L (135-145); Total Protein 7.7 g/dL (6.5-8.0)
[2022-08-26 17:50] LABS: Troponin-I High Sensitivity 6.4 ng/L (<3.5-35.0)
--- NOTE | 2022-08-26 20:00 | PC.NURSE ---
Pt noted to be hypotensive in Triage documentation. Pt brought into room 8.
--- NOTE | 2022-08-26 20:12 | PC.NURSE ---
Sepsis alert called by clerical secretary @ 2009.
[2022-08-26] MEDS: 0.9 % Sodium Chloride 1,000 ML 999 ML IVCONT (20:33)
[2022-08-26] MEDS: 0.9 % Sodium Chloride 1,000 ML 999 ML IV ×2 (20:46→21:44)
[2022-08-26] MEDS: levoFLOXacin/D5W 750 MG/150 ML PIGGYBACK 100 MG IV (20:47)
--- NOTE | 2022-08-26 20:51 | PC.NURSE ---
pt a&o, denies any sob or chest pain. Mediated per aug. Labs collected and sent. Will continue to monitor.
[2022-08-26 21:12] LABS: Lactic Acid 1.7 mmol/L (0.5-2.0)
--- NOTE | 2022-08-26 21:47 | PC.NURSE ---
per provider third liter of fluids given. Will continue to monitor
[2022-08-26 23:04] LABS: Appearance Urine Clear; Color Urine Yellow; Glucose Urine UA >=1000 mg/dL (Negative); Leukocyte Esterase Urine Negative (Negative); Nitrite Urine Negative (Negative); Specific Gravity - Urine 1.015 (1.005-1.025); UMIC TRIGGER UACC YES; Urine Blood Negative (Negative); Urine Ketones Negative (Negative); Urine Protein 30 (1+) mg/dL (Neg-Trace)
[2022-08-26 23:17] LABS: Bacteria Urine Trace (None Seen); Granular Casts Urine Present; RBC Urine 0-2 /HPF (0-2); WBC Urine 0-5 /HPF (0-5)
--- NOTE | 2022-08-26 23:39 | P.HPHOSP_ITS ---
History of Present Illness Date of Service: 08/26/22 Chief Complaint: Dizziness This is 52-year-old male with pertinent history of upq-sljlpzf-bckmhmodj diabetes mellitus, mood disorder, essential hypertension, mixed hyperlipidemia who presents to the emergency department for evaluation of dizziness. Patient states he last saw his primary care physician about 3 years ago. He is compliant with his medications but does not monitor blood sugar at home. Does endorse polyuria. No nausea, vomiting, diarrhea. Patient presents as this morning he felt dizzy when he stood her. He took his blood pressure at home and found it to be low. He denies fever, chills, chest discomfort, palpitations, shortness of breath, abdominal pain, changes in bowel habits. He states he is compliant with his amlodipine In the emergency department, patient's creatinine and blood glucose was found to be elevated Review of Systems Constitutional: Constitutional: Reports no additional constitutional complaints ENT: Reports dizziness Cardiovascular: Cardiovascular: Reports no additional cardiovascular complaints Respiratory: Respiratory: Reports no additional respiratory complaints Gastrointestinal: Gastrointestinal: Reports no additional gastrointestinal complaints Genitourinary: Genitourinary: Reports no additional male genitourinary complaints Neurologic: Reports dizziness [facility] Medical History Diabetes Gout Hypertension Internal derangement of left knee Neuropathy Post-traumatic osteoarthritis of right knee Right knee pain Family History Mother No problems noted. Father No problems noted. Surgical History H/O right knee surgery Social History Smoked in Last 30 Days: No Use of substances other than those prescribed or required for medical reasons: No Advance Directives: No Advance Directives Information Provided: No Current occupational status: unemployed Current occupation: Right Handed Meds Allergies Allergy/AdvReac Type Severity Reaction Status Date / Time Penicillins [PENICILLINS] Allergy Severe ANAPHALAXIS Verified 08/26/22 15:49 ciprofloxacin [CIPROFLOXACIN] Allergy Intermediate RASH Unverified 03/16/20 16:28 metronidazole [METRONIDAZOLE] Allergy Mild RASH Unverified 03/16/20 16:28 ibuprofen [IBUPROFEN] Allergy Unknown UNKNOWN, Unverified 03/16/20 16:28 HISTORY OF ULCERS Active Medications: Current Medications Pharmacy Consult (Consult Rx Perform Med Rec) 1 each MISCELLANE ONCE PRN PRN Reason: Consult order Home Medications Medication Instructions Recorded Confirmed Last Taken Type amlodipine 10 mg tablet 10 mg PO DAILY 05/18/20 05/18/20 Unknown History atorvastatin 20 mg tablet 20 mg PO DAILY 05/18/20 05/18/20 Unknown History baclofen 20 mg tablet 20 mg PO BID 05/18/20 05/18/20 Unknown History bupropion HCl 150 mg tablet,12 hr 150 mg PO BID 05/18/20 05/18/20 Unknown History sustained-release dulaglutide 1.5 mg/0.5 mL 3 mg topical QWEEK 05/18/20 05/18/20 Unknown History subcutaneous pen injector ibuprofen 600 mg tablet 600 mg PO TID 05/18/20 05/18/20 Unknown History metformin 500 mg tablet 500 mg PO BID 05/18/20 05/18/20 Unknown History nabumetone 500 mg tablet 500 mg PO BID 05/18/20 05/18/20 Unknown History Physical Exam Vital Signs and Narrative: Vital Signs: Last Vital Signs Temp 98.1 F 08/26/22 22:53 Pulse 77 08/26/22 23:20 Resp 14 08/26/22 23:20 BP 102/72 08/26/22 23:20 Pulse Ox 99 08/26/22 23:20 O2 Del Method 08/26/22 23:20 BMI result Body Mass Index 31.3 Middle-aged male lying in bed in no distress Neck supple, no JVD Regular rate and rhythm, S1-S2 heard Regular breath sounds bilaterally, no wheezing or crackles appreciated Abdomen soft nontender, no guarding, no rigidity Patient is awake, alert and oriented to self, place, time and person ; no focal motor deficit Psych: Normal mood No pedal edema Results Labs 08/26/22 17:16 08/26/22 17:16 Labs: Laboratory Results - last 24 hr 08/26/22 08/26/22 08/26/22 17:16 17:16 17:16 MCV 78.9 L MCH 25.4 L MCHC 32.2 RDW 13.8 Plt Count 248 MPV 11.5 Immature Gran % (Auto) 0.4 Neut % (Auto) 63.8 Lymph % (Auto) 25.9 [place] % (Auto) 8.3 Eos % (Auto) 1.3 Baso % (Auto) 0.3 Lymph # (Auto) 1.8 [place] # (Auto) 0.6 Eos # (Auto) 0.1 Baso # (Auto) 0.0 Abs Immat Gran (auto) 0.03 Absolute Neuts (auto) 4.5 Absolute Nucleated RBC 0.000 Nucleated RBC % (auto) 0.0 Anion Gap 15 Estim Creat Clear Calc 31.0 Estimated GFR 23 Random Glucose 473 H* Lactic Acid Calcium 9.0 Magnesium 2.0 Total Bilirubin 0.6 Direct Bilirubin 0.2 AST 14 ALT 28 Alkaline Phosphatase 103 Troponin I High Sens 6.4 Total Protein 7.7 Albumin 4.0 Urine Color Urine Appearance Urine pH Ur Specific [place] Urine Protein Urine Glucose (UA) Urine Ketones Urine Blood Urine Nitrite Ur Leukocyte Esterase Urine RBC Urine WBC Ur Squamous Epith Cells Urine Bacteria Hyaline Casts Granular Casts COVID-19 (DORIAN) COVID-19 Clin Com 08/26/22 08/26/22 08/26/22 17:16 20:29 22:57 MCV MCH MCHC RDW Plt Count MPV Immature Gran % (Auto) Neut % (Auto) Lymph % (Auto) [place] % (Auto) Eos % (Auto) Baso % (Auto) Lymph # (Auto) [place] # (Auto) Eos # (Auto) Baso # (Auto) Abs Immat Gran (auto) Absolute Neuts (auto) Absolute Nucleated RBC Nucleated RBC % (auto) Anion Gap Estim Creat Clear Calc Estimated GFR Random Glucose Lactic Acid 1.7 Calcium Magnesium Total Bilirubin Direct Bilirubin AST ALT Alkaline Phosphatase Troponin I High Sens Total Protein Albumin Urine Color Yellow Urine Appearance Clear Urine pH 5.0 Ur Specific [place] 1.015 Urine Protein 30 (1+) H Urine Glucose (UA) >=1000 H Urine Ketones Negative Urine Blood Negative Urine Nitrite Negative Ur Leukocyte Esterase Negative Urine RBC 0-2 Urine WBC 0-5 Ur Squamous Epith Cells 3-5 Urine Bacteria Trace Hyaline Casts 6-10 Granular Casts Present COVID-19 (DORIAN) Negative COVID-19 Clin Com See Note Imaging Radiologist's Impressions: Impressions Chest X-Ray 08/26/22 15:58 IMPRESSION: Subtle asymmetric airspace opacities in the right lower lobe which could be related with subsegmental atelectasis, aspiration or developing infiltrates. Abdomen/Pelvis CT 08/26/22 21:13 IMPRESSION: 1. A cause for the patient's substernal chest pain is not found and there is no obstructive uropathy. 2. Incidental note made of an enlarged fatty liver, benign hepatic cyst, colonic diverticula and mild symmetric bladder wall thickening. Fleischner guidelines were followed. Chest CT 08/26/22 21:13 IMPRESSION: 1. A cause for the patient's substernal chest pain is not found and there is no obstructive uropathy. 2. Incidental note made of an enlarged fatty liver, benign hepatic cyst, colonic diverticula and mild symmetric bladder wall thickening. Fleischner guidelines were followed. Assessment and Plan (1) Orthostatic hypotension: Status: Acute Plan This is 52-year-old male with pertinent history of lhg-adytqbg-lbtgffcog diabetes mellitus, mood disorder, essential hypertension, mixed hyperlipidemia who presents to the emergency department for evaluation of dizziness. #. Orthostatic presyncope due to orthostatic hypotension: In the setting of intravascular volume depletion, likely due to polyuria in the setting of uncontrolled diabetes. No GI losses. Hold home antihypertensives and resusc itated with IV crystalloids. Repeat orthostatic vital signs in a.m. #. Elevated creatinine: EDMUND versus CKD. Monitor creatinine and urine output with fluid resuscitation. Avoid nephrotoxins #. Uncontrolled type 2 diabetes mellitus with hyperglycemia: Initiating Accu- Cheks with sliding scale insulin. Also initiating Lantus #. Mixed hyperlipidemia: Continue statin Med rec pending DVT prophylaxis: Lovenox 30 mg daily Full code Diabetic diet Admit as inpatient and will require two night minimum hospital stay for close monitoring of creatinine and optimization of antihyperglycemics and antihypertensives Time Spent With Patient Time: Total time managing care of this patient today ____ minutes. Quality Stroke Does the patient have a stroke diagnosis?: No VTE Prior VTE?: No VTE Risk Level:: Medical - moderate - high VTE Device Contraindication: Treatment Not Indicated VTE Drug Contraindication: N/A - Med Ordered
[2022-08-26] MEDS: Midodrine HCl 5 MG TABLET PO (23:55)
[2022-08-27] VITALS (12 sets, daily range): BP systolic 107–144; BP diastolic 55–94; PULSE 70–104; RESP 15–19; TEMP 36.8–37.1; O2SAT 96–100
[2022-08-27] MEDS: Enoxaparin Sodium 30 MG/0.3 ML SYRINGE SUBCUT ×2 (00:06→22:14)
--- NOTE | 2022-08-27 00:33 | PC.NURSE ---
Remlap given with a drink, okay per provider Adore LEÓN
[2022-08-27] MEDS: Insulin Glargine,Hum.rec.anlog 100 UNIT/ML 10 ML VIAL 13 UNIT SUBCUT ×2 (00:34→22:13)
[2022-08-27] MEDS: 0.9 % Sodium Chloride Flush 3 ML SYRINGE IVFLUSH ×2 (00:55→08:11)
--- NOTE | 2022-08-27 02:24 | PC.NURSE ---
pt is sleeping at this time, no pain, no sign of distress.
--- NOTE | 2022-08-27 05:02 | PC.NURSE ---
pt is sleeping with no distress, will continue to monitor
[2022-08-27 05:09] LABS: Glucose, Whole Blood 233 mg/dL (60-115)
[2022-08-27 06:51] LABS: Basophils Percent Auto 0.2 % (0-2); Eosinophils Absolute Auto 0.1 X10*3/uL (0.0-0.4); Eosinophils Percent Auto 1.8 % (0-4); Hematocrit 42.1 % (42.0-52.0); Hemoglobin 13.6 g/dl (14.0-18.0); Imm Gran Abs Auto 0.02 X10*3/uL (0.00-0.03); Imm Gran Pct Auto 0.3 % (0.0-0.4); Lymphocytes Absolute Auto 2.1 X10*3/uL (1.2-4.9); Lymphocytes Percent Auto 31.6 % (20-40); MANUAL DIFF FLAG NO; Mean Corpuscular HGB Conc 32.3 g/dl (31.0-36.0); Mean Corpuscular Hemoglobin 25.9 pg (27.0-33.0); Mean Corpuscular Volume 80.2 fL (80.0-98.0); Mean Platelet Volume 11.8 fL (9.4-12.4); Monocytes Absolute Auto 0.6 X10*3/uL (0.1-1.2); Monocytes Percent Auto 8.9 % (2-11); Neutrophils Absolute Auto 3.8 x10*3/uL (2.0-8.3); Neutrophils Percent Auto 57.2 % (45-73); Platelet Count 224 X10*3/uL (160-400); Red Blood Count 5.25 X10*6/uL (4.60-5.80); Red Cell Distribution Width 13.7 % (11.0-16.0); White Blood Count 6.6 X10*3/uL (4.8-10.8)
--- NOTE | 2022-08-27 07:13 | PHA.MEDREC ---
Pharmacy Consult ? Medication Reconciliation Pharmacy has completed the medication reconciliation. Med rec checked from overnight
[2022-08-27 07:16] LABS: Anion Gap 13 (12-20); Blood Urea Nitrogen 22 mg/dL (9-16); Calcium 8.4 mg/dL (8.4-10.2); Carbon Dioxide 25 mmol/L (22-29); Chloride 104 mmol/L (96-108); Creatinine Clr Calc Pharmacy 53.9; Estimated Glomerular Filt Rate 43; Glucose Random 219 mg/dL (60-115); Potassium 3.6 mmol/L (3.3-5.1); Sodium 138 mmol/L (135-145)
[2022-08-27 07:42] LABS: Glucose, Whole Blood 214 mg/dL (60-115)
[2022-08-27] MEDS: Insulin Lispro 100 UNIT/ML 3 ML VIAL SUBCUT ×4 (08:10→22:13)
[2022-08-27 09:23] LABS: Estimated Average Glucose 329 mg/dL; Hemoglobin A1c % 13.1 %
--- NOTE | 2022-08-27 09:50 | MHC.CM.PN ---
CM attempted to reach Patient by phone on his cell @ [phone], but reached his Fiance/hcp instead(IMM addressed with Fiance and original will be mailed certified letter to her and a copy will be placed on the chart). Patient lives in an apartment with his Fiance and their 3 children ages 3,14, and 18 years of age. Patient uses a cane at times and he required no services NURSE TRANSITIONAL. Home/self care is the goal and CM has initiated and will follow for dc planning. Patient has received [employer] vax x2 and the PCP is Dr. Morley Name. CM will attempt to also address IMM with Patient as well.
[2022-08-27] MEDS: Lactated Ringers 1,000 ML 125 ML IVCONT ×2 (10:10→19:04)
[2022-08-27] MEDS: Atorvastatin Calcium 20 MG TABLET PO (10:10)
--- NOTE | 2022-08-27 10:50 | HO.PM.IMPN ---
Subjective Subjective Date of Service: 08/27/22 Interval History: PCP is Dr Prado but pt hasn't seen him in 3 yr was off Trulicity for severeal months denies N/V/abd pain SCr improved Review of Systems Review of Systems: Yes all other systems are reviewed and are negative Physical Exam Vital Signs: Vital Signs: Last Vital Signs Temp 98.2 F 08/27/22 03:03 Pulse 79 08/27/22 08:37 Resp 15 08/27/22 08:37 BP 109/61 08/27/22 08:37 Pulse Ox 96 08/27/22 08:37 O2 Del Method 08/27/22 08:37 BMI result Body Mass Index 31.3 Const: Other: Gen: in no acute distress HEENT: sclera anicteric, moist mucus membranes Neck: supple Lungs: clear to auscultation bilaterally Heart: regular rate and rhythm, no murmurs Abd: soft, non-tender, non-distended Ext: no edema Skin: warm/well-perfused Neuro: alert and oriented x3, no focal findings Psych: appropriate affect Objective Data Active Medications Acetaminophen (Acetaminophen 325 Mg Tablet) 650 mg PO Q6H PRN PRN Reason: Pain, Mild (Pain Scale 1-3) Atorvastatin Calcium (Atorvastatin Calcium 20 Mg Tablet) 20 mg PO DAILY [facility] Last Admin: 08/27/22 10:10 Dose: 20 mg Documented By: ROYCE Dextrose (Dextrose 50 % 25 Gm/50 Ml Syringe) 25 gm IVPUSH Q15M PRN; Protocol PRN Reason: per Hypoglycemia Standing Ord. Enoxaparin Sodium (Enoxaparin Sodium 30 Mg/0.3 Ml Syringe) 30 mg SUBCUT Q24H [facility] Last Admin: 08/27/22 00:06 Dose: 30 mg Documented By: RAY Glucose (Glucose Gel 15 Gm Gel..Gram.) 15 gm PO Q15M PRN; Protocol PRN Reason: per Hypoglycemia Standing Ord. Lactated Ringer's (Lr) 1,000 mls @ 125 mls/hr IVCONT .Q8H [facility] Last Admin: 08/27/22 10:10 Dose: 125 mls/hr Documented By: ROYCE Insulin Glargine (Insulin Glargine,Hum.Rec.Anlog 100 Unit/Ml 10 Ml Vial) 13 unit SUBCUT BEDTIME [facility] Insulin Human Lispro (Insulin Lispro 100 Unit/Ml 3 Ml Vial) 0 unit SUBCUT QIDACHS [facility]; Protocol Last Admin: 08/27/22 08:10 Dose: 4 unit Documented By: ROYCE Melatonin (Melatonin 3 Mg Tablet) 6 mg PO BEDTIME PRN PRN Reason: Insomnia Ondansetron HCl (Ondansetron Hcl 4 Mg/2 Ml Vial) 4 mg IVPUSH Q8H PRN PRN Reason: Nausea and Vomiting Pharmacy Consult (Consult Rx Perform Med Rec) 1 each MISCELLANE ONCE PRN PRN Reason: Consult order Sodium Chloride (0.9 % Sodium Chloride Flush 3 Ml Syringe) 3 ml IVFLUSH QSHIFT [facility] Last Admin: 08/27/22 08:11 Dose: 3 ml Documented By: ROYCE Labs 08/27/22 06:04 08/27/22 06:04 Labs: Laboratory Results - last 24 hr 08/26/22 08/26/22 08/26/22 17:16 17:16 17:16 MCV 78.9 L MCH 25.4 L MCHC 32.2 RDW 13.8 Plt Count 248 MPV 11.5 Immature Gran % (Auto) 0.4 Neut % (Auto) 63.8 Lymph % (Auto) 25.9 [place] % (Auto) 8.3 Eos % (Auto) 1.3 Baso % (Auto) 0.3 Lymph # (Auto) 1.8 [place] # (Auto) 0.6 Eos # (Auto) 0.1 Baso # (Auto) 0.0 Abs Immat Gran (auto) 0.03 Absolute Neuts (auto) 4.5 Absolute Nucleated RBC 0.000 Nucleated RBC % (auto) 0.0 Anion Gap 15 Estim Creat Clear Calc 31.0 Estimated GFR 23 POC Glucose Random Glucose 473 H* Estimat Average Glucose Hemoglobin A1c % Lactic Acid Calcium 9.0 Magnesium 2.0 Total Bilirubin 0.6 Direct Bilirubin 0.2 AST 14 ALT 28 Alkaline Phosphatase 103 Troponin I High Sens 6.4 Total Protein 7.7 Albumin 4.0 Urine Color Urine Appearance Urine pH Ur Specific [place] Urine Protein Urine Glucose (UA) Urine Ketones Urine Blood Urine Nitrite Ur Leukocyte Esterase Urine RBC Urine WBC Ur Squamous Epith Cells Urine Bacteria Hyaline Casts Granular Casts COVID-19 (DORIAN) COVID-19 Clin Com 08/26/22 08/26/22 08/26/22 17:16 20:29 22:57 MCV MCH MCHC RDW Plt Count MPV Immature Gran % (Auto) Neut % (Auto) Lymph % (Auto) [place] % (Auto) Eos % (Auto) Baso % (Auto) Lymph # (Auto) [place] # (Auto) Eos # (Auto) Baso # (Auto) Abs Immat Gran (auto) Absolute Neuts (auto) Absolute Nucleated RBC Nucleated RBC % (auto) Anion Gap Estim Creat Clear Calc Estimated GFR POC Glucose Random Glucose Estimat Average Glucose Hemoglobin A1c % Lactic Acid 1.7 Calcium Magnesium Total Bilirubin Direct Bilirubin AST ALT Alkaline Phosphatase Troponin I High Sens Total Protein Albumin Urine Color Yellow Urine Appearance Clear Urine pH 5.0 Ur Specific [place] 1.015 Urine Protein 30 (1+) H Urine Glucose (UA) >=1000 H Urine Ketones Negative Urine Blood Negative Urine Nitrite Negative Ur Leukocyte Esterase Negative Urine RBC 0-2 Urine WBC 0-5 Ur Squamous Epith Cells 3-5 Urine Bacteria Trace Hyaline Casts 6-10 Granular Casts Present COVID-19 (DORIAN) Negative COVID-19 Clin Com See Note 08/26/22 08/27/22 08/27/22 23:44 05:06 06:04 MCV 80.2 MCH 25.9 L MCHC 32.3 RDW 13.7 Plt Count 224 MPV 11.8 Immature Gran % (Auto) 0.3 Neut % (Auto) 57.2 Lymph % (Auto) 31.6 [place] % (Auto) 8.9 Eos % (Auto) 1.8 Baso % (Auto) 0.2 Lymph # (Auto) 2.1 [place] # (Auto) 0.6 Eos # (Auto) 0.1 Baso # (Auto) 0.0 Abs Immat Gran (auto) 0.02 Absolute Neuts (auto) 3.8 Absolute Nucleated RBC 0.000 Nucleated RBC % (auto) 0.0 Anion Gap Estim Creat Clear Calc Estimated GFR POC Glucose 233 H Random Glucose Estimat Average Glucose Hemoglobin A1c % Lactic Acid Calcium Magnesium Total Bilirubin Direct Bilirubin AST ALT Alkaline Phosphatase Troponin I High Sens 6.0 Total Protein Albumin Urine Color Urine Appearance Urine pH Ur Specific [place] Urine Protein Urine Glucose (UA) Urine Ketones Urine Blood Urine Nitrite Ur Leukocyte Esterase Urine RBC Urine WBC Ur Squamous Epith Cells Urine Bacteria Hyaline Casts Granular Casts COVID-19 (DORIAN) COVID-19 Clin Com 08/27/22 08/27/22 08/27/22 06:04 06:04 07:38 MCV MCH MCHC RDW Plt Count MPV Immature Gran % (Auto) Neut % (Auto) Lymph % (Auto) [place] % (Auto) Eos % (Auto) Baso % (Auto) Lymph # (Auto) [place] # (Auto) Eos # (Auto) Baso # (Auto) Abs Immat Gran (auto) Absolute Neuts (auto) Absolute Nucleated RBC Nucleated RBC % (auto) Anion Gap 13 Estim Creat Clear Calc 53.9 Estimated GFR 43 POC Glucose 214 H Random Glucose 219 H Estimat Average Glucose 329 Hemoglobin A1c % 13.1 Lactic Acid Calcium 8.4 D Magnesium Total Bilirubin Direct Bilirubin AST ALT Alkaline Phosphatase Troponin I High Sens Total Protein Albumin Urine Color Urine Appearance Urine pH Ur Specific [place] Urine Protein Urine Glucose (UA) Urine Ketones Urine Blood Urine Nitrite Ur Leukocyte Esterase Urine RBC Urine WBC Ur Squamous Epith Cells Urine Bacteria Hyaline Casts Granular Casts COVID-19 (DORIAN) COVID-19 Clin Com Assessment and Plan (1) EDMUND (acute kidney injury): Status: Acute (2) Orthostatic hypotension: Status: Acute Plan d#2 52yo M with DM2 + HLD presenting with dizziness, found to have orthostatic hypotension + EDMUND # prerenal EDMUND # orthostatic hypotension - IV fluid resuscitation, recheck BMP in AM # uncontrolled DM2 with hyperglycemia, A1c 13.1 - basal-bolus insulin, hold MTF, on Trulicity as outpt # HLD - statin # VTE ppx: LMWH # dispo: anticipate home possibly tomorrow In my clinical judgment, the patient requires continued inpatient hospitalization for the following reasons: IV fluid hydration Time Spent With Patient Time: Total time managing care of this patient today _35__ minutes. Quality Stroke Does the patient have a stroke diagnosis?: No VTE Prior VTE?: No VTE Risk Level:: Medical - moderate - high VTE Device Contraindication: Treatment Not Indicated VTE Drug Contraindication: N/A - Med Ordered
[2022-08-27 12:28] LABS: Glucose, Whole Blood 205 mg/dL (60-115)
[2022-08-27 18:33] LABS: Glucose, Whole Blood 237 mg/dL (60-115)
[2022-08-27 21:26] LABS: Glucose, Whole Blood 279 mg/dL (60-115)
--- NOTE | 2022-08-27 22:16 | PC.NURSE ---
Catracho JOSEPH medicated per AUG.
[2022-08-27] MEDS: polyethylene glycoL 3350 17 GM POWD.PACK PO (22:40)
[2022-08-28] MEDS: Lactated Ringers 1,000 ML 125 ML IVCONT (02:56)
[2022-08-28 05:32] VITALS: BP 145/91; PULSE 81; RESP 16; TEMP 36.6; O2SAT 98
[2022-08-28 07:25] LABS: Hematocrit 43.3 % (42.0-52.0); Hemoglobin 13.8 g/dl (14.0-18.0); Mean Corpuscular HGB Conc 31.9 g/dl (31.0-36.0); Mean Corpuscular Hemoglobin 25.3 pg (27.0-33.0); Mean Corpuscular Volume 79.4 fL (80.0-98.0); Mean Platelet Volume 11.9 fL (9.4-12.4); Platelet Count 227 X10*3/uL (160-400); Red Blood Count 5.45 X10*6/uL (4.60-5.80); Red Cell Distribution Width 13.6 % (11.0-16.0); White Blood Count 6.6 X10*3/uL (4.8-10.8)
[2022-08-28 07:36] VITALS: BP 153/91; PULSE 86; RESP 14; TEMP 36.9; O2SAT 97
[2022-08-28 07:39] LABS: Anion Gap 13 (12-20); Blood Urea Nitrogen 14 mg/dL (9-16); Carbon Dioxide 28 mmol/L (22-29); Chloride 102 mmol/L (96-108); Creatinine Clr Calc Pharmacy 78.2; Estimated Glomerular Filt Rate > 60; Glucose Random 130 mg/dL (60-115); Potassium 3.5 mmol/L (3.3-5.1); Sodium 139 mmol/L (135-145)
[2022-08-28 07:46] LABS: Calcium 9.4 mg/dL (8.4-10.2)
[2022-08-28 07:49] LABS: Glucose, Whole Blood 155 mg/dL (60-115)
[2022-08-28] MEDS: Atorvastatin Calcium 20 MG TABLET PO (08:32)
--- NOTE | 2022-08-28 10:21 | PM.DS ---
DS: Providers Provider Date of Service: 08/28/22 Date of admission: 08/26/22 23:39 Date of discharge: 08/28/22 Primary care physician: Peyman Prado MD DS: Diagnosis Discharge Diagnosis (1) EDMUND (acute kidney injury): Status: Acute (2) Orthostatic hypotension: Status: Acute (3) Uncontrolled diabetes mellitus with hyperglycemia: Status: Acute DS: Summary Hospital Course Hospital Course: from admission H+P by hospitalist Lazaro Sprague MD, 08/26/22: This is 52-year-old male with pertinent history of [id number] diabetes mellitus, mood disorder, essential hypertension, mixed hyperlipidemia who presents to the emergency department for evaluation of dizziness.? Patient states he last saw his primary care physician about 3 years ago. He is compliant with his medications but does not monitor blood sugar at home.? Does endorse polyuria.? No nausea, vomiting, diarrhea.? Patient presents as this morning he felt dizzy when he stood her.? He took his blood pressure at home and found it to be low.? He denies fever, chills, chest discomfort, palpitations, shortness of breath, abdominal pain, changes in bowel habits.? He states he is compliant with his amlodipine In the emergency department, patient's creatinine and blood glucose was found to be elevated 52yo M with DM2 + HLD presenting with dizziness, found to have orthostatic hypotension + EDMUND # prerenal EDMUND # orthostatic hypotension Resolved with IV fluid resuscitation. # uncontrolled DM2 with hyperglycemia, A1c 13.1 Started on Lantus. Resume metformin and Trulicity as outpatient and prescribed Lantus 12 units qhs. Advised to follow-up with PCP as soon as possible. Time Spent with Patient Time attestation: Total time managing care of this patient today __35__ minutes. Discharge coordination time: Greater than 30 minutes Quality: Safe Use of Opioids Does Pt have an Active Cancer Diagnosis on the Problem List?: No Quality: Stroke Does the patient have a stroke diagnosis?: No Physical Exam Vital Signs: Vital Signs: Last Vital Signs Temp 98.5 F 08/28/22 07:36 Pulse 86 08/28/22 07:36 Resp 14 08/28/22 07:36 BP 153/91 H 08/28/22 07:36 Pulse Ox 97 08/28/22 07:36 O2 Del Method 08/28/22 07:36 BMI result Body Mass Index 31.3 Gen: in no acute distress HEENT: sclera anicteric, moist mucus membranes Neck: supple Lungs: clear to auscultation bilaterally Heart: regular rate and rhythm, no murmurs Abd: soft, non-tender, non-distended Ext: no edema Skin: warm/well-perfused Neuro: alert and oriented x3, no focal findings Psych: appropriate affect DS: Data Data Completed and Pending Completed studies during hospitalization [Text1]: Laboratory Results WBC 6.6 X10*3/uL (4.8-10.8) 08/28/22 06:01 RBC 5.45 X10*6/uL (4.60-5.80) 08/28/22 06:01 Hgb 13.8 g/dl (14.0-18.0) L 08/28/22 06:01 Hct 43.3 % (42.0-52.0) 08/28/22 06:01 MCV 79.4 fL (80.0-98.0) L 08/28/22 06:01 MCH 25.3 pg (27.0-33.0) L 08/28/22 06:01 MCHC 31.9 g/dl (31.0-36.0) 08/28/22 06:01 RDW 13.6 % (11.0-16.0) 08/28/22 06:01 Plt Count 227 X10*3/uL (160-400) 08/28/22 06:01 MPV 11.9 fL (9.4-12.4) 08/28/22 06:01 Immature Gran % (Auto) 0.3 % (0.0-0.4) 08/27/22 06:04 Neut % (Auto) 57.2 % (45-73) 08/27/22 06:04 Lymph % (Auto) 31.6 % (20-40) 08/27/22 06:04 [place] % (Auto) 8.9 % (2-11) 08/27/22 06:04 Eos % (Auto) 1.8 % (0-4) 08/27/22 06:04 Baso % (Auto) 0.2 % (0-2) 08/27/22 06:04 Lymph # (Auto) 2.1 X10*3/uL (1.2-4.9) 08/27/22 06:04 [place] # (Auto) 0.6 X10*3/uL (0.1-1.2) 08/27/22 06:04 Eos # (Auto) 0.1 X10*3/uL (0.0-0.4) 08/27/22 06:04 Baso # (Auto) 0.0 X10*3/uL (0.0-0.2) 08/27/22 06:04 Abs Immat Gran (auto) 0.02 X10*3/uL (0.00-0.03) 08/27/22 06:04 Absolute Neuts (auto) 3.8 x10*3/uL (2.0-8.3) 08/27/22 06:04 Absolute Nucleated RBC 0.000 X10*3/uL (0.0-0.012) 08/28/22 06:01 Nucleated RBC % (auto) 0.0 /100WBC (0.0-0.2) 08/28/22 06:01 Sodium 139 mmol/L (135-145) 08/28/22 06:00 Potassium 3.5 mmol/L (3.3-5.1) 08/28/22 06:00 Chloride 102 mmol/L (96-108) 08/28/22 06:00 Carbon Dioxide 28 mmol/L (22-29) 08/28/22 06:00 Anion Gap 13 (12-20) 08/28/22 06:00 BUN 14 mg/dL (9-16) 08/28/22 06:00 Creatinine 1.16 mg/dL (0.5-1.4) 08/28/22 06:00 Estim Creat Clear Calc 78.2 08/28/22 06:00 Estimated GFR > 60 08/28/22 06:00 POC Glucose 155 mg/dL (60-115) H 08/28/22 07:34 Random Glucose 130 mg/dL (60-115) H 08/28/22 06:00 Estimat Average Glucose 329 mg/dL 08/27/22 06:04 Hemoglobin A1c % 13.1 % 08/27/22 06:04 Lactic Acid 1.7 mmol/L (0.5-2.0) 08/26/22 20:29 Calcium 9.4 mg/dL (8.4-10.2) D 08/28/22 06:00 Magnesium 2.0 mg/dL (1.6-2.6) 08/26/22 17:16 Total Bilirubin 0.6 mg/dL (0.0-1.0) 08/26/22 17:16 Direct Bilirubin 0.2 mg/dL (0.0-0.5) 08/26/22 17:16 AST 14 U/L (5-37) 08/26/22 17:16 ALT 28 U/L (0-40) 08/26/22 17:16 Alkaline Phosphatase 103 U/L (39-117) 08/26/22 17:16 Troponin I High Sens 6.0 ng/L (<3.5-35.0) 08/26/22 23:44 Total Protein 7.7 g/dL (6.5-8.0) 08/26/22 17:16 Albumin 4.0 g/dL (3.5-5.0) 08/26/22 17:16 Urine Color Yellow 08/26/22 22:57 Urine Appearance Clear 08/26/22 22:57 Urine pH 5.0 (5.0-9.0) 08/26/22 22:57 Ur Specific [place] 1.015 (1.005-1.025) 08/26/22 22:57 Urine Protein 30 (1+) mg/dL (Neg-Trace) H 08/26/22 22:57 Urine Glucose (UA) >=1000 mg/dL (Negative) H 08/26/22 22:57 Urine Ketones Negative mg/dL (Negative) 08/26/22 22:57 Urine Blood Negative (Negative) 08/26/22 22:57 Urine Nitrite Negative (Negative) 08/26/22 22:57 Ur Leukocyte Esterase Negative (Negative) 08/26/22 22:57 Urine RBC 0-2 /HPF (0-2) 08/26/22 22:57 Urine WBC 0-5 /HPF (0-5) 08/26/22 22:57 Ur Squamous Epith Cells 3-5 /HPF (0-2) 08/26/22 22:57 Urine Bacteria Trace (None Seen) 08/26/22 22:57 Hyaline Casts 6-10 /LPF (0-2) 08/26/22 22:57 Granular Casts Present 08/26/22 22:57 COVID-19 (DORIAN) Negative (Negative) 08/26/22 17:16 COVID-19 Clin Com See Note 08/26/22 17:16 Impressions Chest X-Ray 08/26/22 15:58 IMPRESSION: Subtle asymmetric airspace opacities in the right lower lobe which could be related with subsegmental atelectasis, aspiration or developing infiltrates. Abdomen/Pelvis CT 08/26/22 21:13 IMPRESSION: 1. A cause for the patient's substernal chest pain is not found and there is no obstructive uropathy. 2. Incidental note made of an enlarged fatty liver, benign hepatic cyst, colonic diverticula and mild symmetric bladder wall thickening. Fleischner guidelines were followed. Chest CT 08/26/22 21:13 IMPRESSION: 1. A cause for the patient's substernal chest pain is not found and there is no obstructive uropathy. 2. Incidental note made of an enlarged fatty liver, benign hepatic cyst, colonic diverticula and mild symmetric bladder wall thickening. Fleischner guidelines were followed. Discharge Plan Discharge Anticipated Discharge Date/Time: 08/28/22 09:37 Patient Disposition: Home, Self-Care Discharge Diagnosis: EDMUND/orthostatic hypotension due to dehydration + uncontrolled diabetes Referrals: Name,MD Peyman [Primary Care Provider] - 1 Week Discharge Medications: New (DME) FreeStyle Lite Strips Strip Qty: 100 0RF Rx Instructions: test daily before breakfast (DME) blood-glucose meter [FreeStyle Lite Meter] Kit Qty: 1 0RF Rx Instructions: As Directed alcohol swabs Pads, Medicated 1 pad TOPICAL QIDACHS Qty: 100 0RF Rx Instructions: Use four times a day or as directed. insulin glargine [Lantus Solostar U-100 Insulin] 100 unit/mL (3 mL) insulin pen 12 unit SUBCUT DAILY Qty: 15 0RF (DME) pen needle, diabetic 32 gauge x 1/4 needle Qty: 100 0RF Rx Instructions: daily (DME) lancets [FreeStyle Lancets] 28 gauge misc Qty: 100 0RF Rx Instructions: test once daily Continued metformin 500 mg tablet 1 tab PO BID atorvastatin 20 mg tablet 1 tab PO DAILY chlorthalidone 50 mg tablet 1 tab PO QAM Trulicity 1.5 mg/0.5 mL pen injector 0.5 ml subcut QWEEK Discharge Orders: Discharge Order (Routine); Ordered 08/28/22 Ordered By: Gray Orr Diet: Diabetic diet Activity on Discharge: As tolerated Stand Alone Forms: Patient Portal Discharge page Care Plan Goals: prevent complications of diabetes Health Concerns: EDMUND/orthostatic hypotension due to dehydration + uncontrolled diabetes Plan of Treatment: Take Trulicity and metformin. Start Lantus 12 units at bedtime. Check blood glucose in the morning before breakfast; goal 80-140. Please follow up with your primary care doctor within 1 week. Return to the hospital if you experience recurrent or worsening symptoms. Assessment: See Discharge Summary. Patient Instructions: Hypoglycemia in a Person with Diabetes (DC), Type 2 Diabetes Management for Adults (DC)
--- NOTE | 2022-08-28 10:35 | MHC.CM.PN ---
Received notification patient will be d/c'd home without services. Finance will transport patient.
== END 2022-08-28 10:50 | disposition home or self-care (01) | DRG 312 ==
LOC: HO.ED 23:37 → HO.EDOVER 23:47 → HO.IMC 08-28 09:18 → HO.EDOVER 08-28 10:05
PROVIDERS: Physician Assistant; Admitting Provider Student in an Organized Health Care Education/Training Program; Emergency Provider Internal Medicine; PCP Internal Medicine Geriatric Medicine; Visit Provider Family Medicine
DX: I95.1 Orthostatic hypotension (principal); N17.9 Acute kidney failure, unspecified; E11.65 Type 2 diabetes mellitus with hyperglycemia; E78.2 Mixed hyperlipidemia; Z20.822 Contact with and (suspected) exposure to COVID-19; Z88.0 Allergy status to penicillin; Z88.1 Allergy status to other antibiotic agents; Z88.6 Allergy status to analgesic agent; Z88.8 Allergy status to other drugs, medicaments and biological substances; Z79.4 Long term (current) use of insulin; Z79.84 Long term (current) use of oral hypoglycemic drugs; Z79.899 Other long term (current) drug therapy
CPT/HCPCS: 36415; 71046; 71250; 74176; 80048; 80076; 81001; 82947; 83036; 83605; 83735; 84484; 85025; 85027; 87040; 87635; 93005; 99285; J1650; J1956

== ENCOUNTER 2022-10-07 09:03 | Outpatient (REF) | payer OTHER, SELFPAY ==
--- NOTE | ~2022-10-07 | XR_ITS ---
EXAMINATION: XR ANKLE, RIGHT CLINICAL INFORMATION: Pain; history of ankle surgery. COMPARISON: Radiographs dated 07/30/2017. TECHNIQUE: AP, lateral, and mortise views of the right ankle. FINDINGS: Bony mineralization is normal. There is an intact calcaneotalar fusion, with 2 intact orthopedic screws traversing their articulation. The ankle mortise is intact. No acute fracture or dislocation is seen. There is a right ankle joint effusion. Again, there is degenerative spurring and/or posttraumatic change of the medial malleolus. A stable well marginated, benign-appearing lytic lesion is seen of the cortex of the distal medial right tibial shaft. No focal soft tissue swelling, gas or foreign body is seen. XR/XR ankle RT 2V IMPRESSION: A right ankle joint effusion is seen. There are stable postoperative changes consistent with a prior calcaneal talar fusion. No fracture or dislocation is seen.
== END 2022-10-07 09:04 | disposition home or self-care (01) ==
LOC: HO.XRAY 09:03
PROVIDERS: Visit Provider Internal Medicine Geriatric Medicine
DX: M25.571 Pain in right ankle and joints of right foot (principal); G89.29 Other chronic pain
CPT/HCPCS: 73600

== ENCOUNTER → 2022-12-09 12:59 | Outpatient (BNVA) | payer OTHER, SELFPAY | PROVIDERS: PCP Internal Medicine Geriatric Medicine; Visit Provider Physician Assistant | DX: M19.071 Primary osteoarthritis, right ankle and foot (principal) | CPT/HCPCS: 99202 ==

== ENCOUNTER 2024-02-24 07:26 | Emergency (ER) | payer OTHER, SELFPAY ==
--- NOTE | ~2024-02-24 | US_ITS ---
EXAMINATION: US ABDOMEN LIMITED CLINICAL INFORMATION: Right upper quadrant and epigastric pain. COMPARISON: Ultrasound abdomen 09/23/2017. TECHNIQUE: Real-time imaging of the right upper quadrant abdominal viscera. FINDINGS: PANCREAS: The visualized portions of pancreas appear unremarkable LIVER: The liver is enlarged. The liver contour is normal. Parenchymal echogenicity is increased. There is a minimally complex cyst in the right hepatic lobe measuring 3.3 x 1.6 x 1.7 cm and a simple cyst in the left hepatic lobe measuring 1.1 x 0.6 x 1 cm. No intrahepatic biliary duct dilatation seen. GALLBLADDER: The gallbladder is physiologically distended without evidence of stones, sludge, polyps, wall thickening or pericholecystic fluid. COMMON BILE DUCT: Normal in caliber measuring 0.4 cm in diameter. RIGHT KIDNEY: No hydronephrosis. No renal calculi or focal parenchymal lesions. The kidney measures 12.7 cm in maximum dimension. FREE FLUID: None. US/US abdomen limited IMPRESSION: Hepatomegaly and hepatic steatosis. No cholelithiasis or sonographic evidence of acute cholecystitis. Electronically signed by: Jan Castillo MD 02/24/2024 10:48 AM EDT
[2024-02-24 07:28] VITALS: BP 127/92; PULSE 111; RESP 20; TEMP 36.9; O2SAT 100; BMI 30.2
[2024-02-24 07:44] LABS: MANUAL DIFF FLAG NO
[2024-02-24 07:45] LABS: Basophils Percent Auto 0.3 % (0-2); Eosinophils Percent Auto 0.4 % (0-4); Hematocrit 53.2 % (42.0-52.0); Hemoglobin 17.6 g/dl (14.0-18.0); Imm Gran Abs Auto 0.04 X10*3/uL (0.00-0.03); Imm Gran Pct Auto 0.4 % (0.0-0.4); Lymphocytes Absolute Auto 1.3 X10*3/uL (1.2-4.9); Lymphocytes Percent Auto 11.3 % (20-40); Mean Corpuscular HGB Conc 33.1 g/dl (31.0-36.0); Mean Corpuscular Hemoglobin 26.5 pg (27.0-33.0); Mean Platelet Volume 11.2 fL (9.4-12.4); Monocytes Absolute Auto 0.7 X10*3/uL (0.1-1.2); Monocytes Percent Auto 6.5 % (2-11); Neutrophils Absolute Auto 9.2 x10*3/uL (2.0-8.3); Neutrophils Percent Auto 81.1 % (45-73); Platelet Count 275 X10*3/uL (160-400); Red Blood Count 6.65 X10*6/uL (4.60-5.80); Red Cell Distribution Width 14.1 % (11.0-16.0); White Blood Count 11.3 X10*3/uL (4.8-10.8)
[2024-02-24 07:58] VITALS: BP 143/84; PULSE 117; RESP 20; TEMP 36.6; O2SAT 97
[2024-02-24 08:01] LABS: Alanine Aminotransferase 36 U/L (0-40); Albumin Level 4.7 g/dL (3.5-5.0); Alkaline Phosphatase 108 U/L (39-117); Anion Gap 19 (12-20); Aspartate Amino Transferase 23 U/L (5-37); Bilirubin Total 0.4 mg/dL (0.0-1.0); Blood Urea Nitrogen 14 mg/dL (9-16); Calcium 10.6 mg/dL (8.4-10.2); Carbon Dioxide 21 mmol/L (22-29); Chloride 104 mmol/L (96-108); Creatinine Clr Calc Pharmacy 49.2; Estimated Glomerular Filt Rate 40; Glucose Random 255 mg/dL (60-115); Lipase 19 U/L (8-78); Potassium 3.7 mmol/L (3.3-5.1); Sodium 140 mmol/L (135-145); Total Protein 8.7 g/dL (6.5-8.0)
[2024-02-24 08:27] LABS: Influenza A PCR NEGATIVE (Negative); Influenza B PCR NEGATIVE (Negative); Resp Syncy Virus RNA Qual PCR NEGATIVE (Negative); SARS COV2 PCR INHOUSE NEGATIVE (Negative)
--- NOTE | 2024-02-24 08:46 | ECG_ITS ---
Test Reason : tacycardia Blood Pressure : / mmHG Vent. 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
[2024-02-24] MEDS: 0.9 % Sodium Chloride 1,000 ML 999 ML IV (08:56)
[2024-02-24] MEDS: ondansetron HCL 4 MG/2 ML VIAL IVPUSH (08:56)
[2024-02-24] MEDS: Morphine Sulfate 4 MG/ML CARTRIDGE IVPUSH (08:56)
--- NOTE | 2024-02-24 09:37 | ED_ITS ---
HPI - Nausea/Vomiting/Diarrhea General Chief complaint: Nausea/Vomiting/Diarrhea Stated complaint: Vomiting Time Seen by Provider: 02/24/24 08:27 Source: patient, RN notes reviewed and old records reviewed Mode of arrival: ambulatory History of Present Illness ED Provider: Sierra Monroe PA-C HPI Narrative: 53-year-old male with a past medical history of diabetes, HTN, gout, neuropathy, presenting to the ED complaining of epigastric abdominal pain, nausea, vomiting and diarrhea starting around 02:00AM. Reports symptoms woke him up from sleep. Reports inability to tolerate p.o. Denies fever, chills, travel, suspicious food intake, sick contacts, dysuria/hematuria, chest pain. Denies EtOH or drug use. MD elicited complaint: nausea, vomiting, diarrhea and abdominal pain Related Data Home Medications ?Medication ?Instructions ?Recorded ?Confirmed atorvastatin 20 mg tablet 1 tab PO DAILY 08/27/22 08/27/22 chlorthalidone 50 mg tablet 1 tab PO QAM 08/27/22 08/27/22 dulaglutide 1.5 mg/0.5 mL 0.5 ml subcut QWEEK 08/27/22 08/27/22 subcutaneous pen injector (Trulicity) metformin 500 mg tablet 1 tab PO BID 08/27/22 08/27/22 losartan 100 1 tab PO DAILY 12/09/22 mg-hydrochlorothiazide 25 mg tablet Previous Rx's ?Medication ?Instructions ?Recorded alcohol swabs 1 pad topical QIDACHS #100 ea 08/28/22 blood sugar diagnostic (FreeStyle #100 ea 08/28/22 Lite Strips) blood-glucose meter (FreeStyle #1 ea 08/28/22 Lite Meter kit) insulin glargine 100 unit/mL (3 12 unit (0.12 mL) subcut DAILY #15 08/28/22 mL) subcutaneous pen (Lantus mL Solostar U-100 Insulin) lancets 28 gauge (FreeStyle #100 ea 08/28/22 Lancets) pen needle, diabetic 32 gauge x #100 ea 08/28/2207/03 Allergies Allergy/AdvReac Type Severity Reaction Status Date / Time Penicillins [PENICILLINS] Allergy Severe ANAPHALAXIS Verified 02/24/24 07:30 ciprofloxacin [CIPROFLOXACIN] Allergy Intermediate RASH Verified 02/24/24 07:30 metronidazole [METRONIDAZOLE] Allergy Mild RASH Verified 02/24/24 07:30 ibuprofen [IBUPROFEN] Allergy Unknown UNKNOWN, Verified 02/24/24 07:30 HISTORY OF ULCERS Review of Systems 2 Review of Systems: Constitutional: No Fever, No Chills ENT/Mouth: No Ear Pain, No Nasal Congestion, No sore throat, No Rhinorrhea, No Swallowing Difficulty Cardiovascular: No Chest Pain, No SOB Respiratory: No Cough, No Sputum, No Wheezing Gastrointestinal: + Nausea, + Vomiting, + Diarrhea, No Constipation, +Abdominal pain Genitourinary: No Dysuria, No Urinary Frequency, No Hematuria, No Flank Pain Musculoskeletal: No joint pain, No Myalgias, No Joint Swelling Skin: No Skin Lesions, No rash Neuro: No Weakness, No Numbness, No Paresthesias Yes all other systems are reviewed and are negative Constitutional: Constitutional: Reports as per [facility] Past Medical History Attestation statement: The following information was validated with the patient. Source: old records reviewed Medical History Uncontrolled diabetes mellitus with hyperglycemia Hypertension Diabetes Right knee pain Post-traumatic osteoarthritis of right knee Internal derangement of left knee Gout Neuropathy Surgical History H/O right knee surgery Family History Family History Mother No problems noted. Father No problems noted. Social History Social History Alcohol intake: current Alcohol intake frequency: holidays/special occasions only Patient Tobacco Use Status: Never used Tobacco Smoked in Last 30 Days: No Use of substances other than those prescribed or required for medical reasons: Yes Substance Use Type: Marijuana Advance Directives: No Advance Directives Information Provided: No Do you have a plan to hurt others: No Plan service: No Current occupational status: disabled Current occupation: Right Handed Physical Exam 2 Vital Signs: Vital Signs: Last Vital Signs Temp 98.2 F 02/24/24 12:10 Pulse 91 02/24/24 14:05 Resp 16 02/24/24 14:05 BP 126/82 02/24/24 14:05 Pulse Ox 99 02/24/24 14:05 O2 Del Method Room Air 02/24/24 14:05 BMI result Body Mass Index 30.2 Const: General: cooperative, healthy appearing and no acute distress O rientation/consciousness: patient oriented x3 Limitations: no limitations HEENT: Head: Yes normal to inspection and Yes atraumatic Ears: hearing grossly normal bilaterally General nose exam: Normal external nose present Face and sinus: Yes normal facial exam Eyes: General: appearance normal, both eyes and all related structures EOM: EOMs intact bilaterally Neck: Neck: Yes normal visual inspection and Yes no meningeal signs Resp: Effort & Inspection: normal respiratory effort and no respiratory distress Auscultation: clear to auscultation bilaterally Cardio: Rate: regular rate Heart sounds: S1 normal heart sound present and S2 normal heart sound present GI: Inspection: Yes normal to inspection Palpation (GI): Soft to palpation, Tenderness to palpation present (GI) in the epigastrum and in the RUQ; with no rebound tenderness, no guarding and not rigid : General: Yes no CVA tenderness Back/Spine/Pelvis: Back: no CVA tenderness Skin: Rashes: no rashes Wounds: no wounds Neuro: General: patient oriented x3, tone normal and no meningeal signs C ranial nerves: Yes CN's II-XII intact bilaterally Gait exam (Neuro): Normal gait present Extrem: General: Yes normal to inspection Course Course Course Narrative: -WBC count 11.3. H&H hemoconcentrated consistent with dehydration -+ EDMUND with creatinine 1.79 > likely from dehydration -troponin 8.4 > will obtain 3 hour repeat -COVID/flu/RSV negative -repeat troponin without rise, mi unlikely US abdomen limited IMPRESSION: Hepatomegaly and hepatic steatosis. No cholelithiasis or sonographic evidence of acute cholecystitis. > will obtain repeat BMP to see if EDMUND has improved after IVF. -EDMUND with mild improvement after 2 L IVF from 1.79-1.54 > will give additional L and repeat -1440--BP BMP with creatinine 1.47 after 3 L IVF. Patient reports he was recently started on Ozempic, switched from Trulicity. States after injection struggles with nausea, vomiting and inability to tolerate p.o.. Discussed with patient needs to call his PCP as likely can not tolerate Ozempic, also discussed risk of EDMUND with Ozempic. Encouraged increased fluid intake and close PCP follow-up. Patient has tolerated p.o. in the ED without difficulty. Safe for discharge home at this time Results discussed with patient including worrisome signs and symptoms and strict return precautions, and when to return to the emergency department. They verbalized understanding and feel safe for discharge at this time. Medications Administered Discontinued Medications Generic Name Dose Route Start Last Admin Trade Name Rodney PRN Reason Stop Dose Admin Sodium Chloride 1,000 mls @ 999 mls/hr 02/24/24 09:00 02/24/24 09:49 Ns IV 02/24/24 10:00 Infused .Q1H1M RANDALL Infusion Ceftriaxone Sodium 1 gm/ 50 mls @ 100 mls/hr 02/24/24 09:15 02/24/24 11:10 Sodium Chloride IV 02/24/24 09:44 Infused ONCE ONE Infusion Lactated Ringer's 1,000 mls @ 999 mls/hr 02/24/24 09:45 02/24/24 11:45 Lr IV 02/24/24 10:45 Infused .Q1H1M RANDALL Infusion Lactated Ringer's 1,000 mls @ 999 mls/hr 02/24/24 12:00 02/24/24 14:27 Lr IV 02/24/24 13:00 Infused .Q1H1M RANDALL Infusion Morphine Sulfate 4 mg 02/24/24 08:46 02/24/24 08:56 Morphine Sulfate 4 Mg/Ml Cartridge IVPUSH 02/24/24 08:47 4 mg ONCE ONE Administration Protocol Ondansetron HCl 4 mg 02/24/24 08:46 02/24/24 08:56 Ondansetron Hcl 4 Mg/2 Ml Vial IVPUSH 02/24/24 08:47 4 mg ONCE ONE Administration Medical Decision Making Medical Decision Making MDM Narrative: 53-year-old male with a past medical history of diabetes, HTN, gout, neuropathy, presenting to the ED complaining of epigastric abdominal pain, nausea, vomiting and diarrhea starting around 02:00AM. On exam tachycardic, uncomfortable, abdomen soft with epigastric/RUQ tenderness, no rebound or guarding, no CVAT. Concern for cholecystitis/lithiasis vs pancreatitis vs gastroenteritis. Rule out DKA vs metabolic abnormalities. Low suspicion for severe sepsis at this time, vital sign abnormalities likely from retching/dehydration. Plan: EKG, labs, UA, ultrasound, IVF, pain control, re-evaluate Please refer to course for remaining clinical decision making, interpretation of labs/imaging results, and discussions with consultants and/or family members. Differential Diagnosis Differential Diagnoses: The differential diagnosis associated with the presentation includes As above Admission/Observation Consideration of admission/observation: Escalation of care including admission/observation considered Lab Data MDM Lab Attestation statement: I reviewed the patient's lab results. 02/24/24 07:37 02/24/24 14:09 Labs: Lab Results 02/24/24 02/24/24 02/24/24 Range/Units 07:37 10:01 10:02 WBC 11.3 H (4.8-10.8) X10*3/uL RBC 6.65 H D (4.60-5.80) X10*6/uL Hgb 17.6 D (14.0-18.0) g/dl Hct 53.2 H D (42.0-52.0) % MCV 80.0 (80.0-98.0) fL MCH 26.5 L (27.0-33.0) pg MCHC 33.1 (31.0-36.0) g/dl RDW 14.1 (11.0-16.0) % Plt Count 275 (160-400) X10*3/uL MPV 11.2 (9.4-12.4) fL Immature Gran % (Auto) 0.4 (0.0-0.4) % Neut % (Auto) 81.1 H (45-73) % Lymph % (Auto) 11.3 L (20-40) % [place] % (Auto) 6.5 (2-11) % Eos % (Auto) 0.4 (0-4) % Baso % (Auto) 0.3 (0-2) % Lymph # (Auto) 1.3 (1.2-4.9) X10*3/uL [place] # (Auto) 0.7 (0.1-1.2) X10*3/uL Eos # (Auto) 0.0 (0.0-0.4) X10*3/uL Baso # (Auto) 0.0 (0.0-0.2) X10*3/uL Abs Immat Gran (auto) 0.04 H (0.00-0.03) X10*3/uL Absolute Neuts (auto) 9.2 H (2.0-8.3) x10*3/uL Absolute Nucleated RBC 0.000 (0.0-0.012) X10*3/uL Nucleated RBC % (auto) 0.0 (0.0-0.2) /100WBC Sodium 140 (135-145) mmol/L Potassium 3.7 (3.3-5.1) mmol/L Chloride 104 (96-108) mmol/L Carbon Dioxide 21 L (22-29) mmol/L Anion Gap 19 (12-20) BUN 14 (9-16) mg/dL Creatinine 1.79 H (0.5-1.4) mg/dL Estim Creat Clear Calc 49.2 Estimated GFR 40 Random Glucose 255 H (60-115) mg/dL Lactic Acid 1.6 (0.5-2.0) mmol/L Calcium 10.6 H D (8.4-10.2) mg/dL Magnesium 2.3 (1.6-2.6) mg/dL Total Bilirubin 0.4 (0.0-1.0) mg/dL AST 23 (5-37) U/L ALT 36 (0-40) U/L Alkaline Phosphatase 108 (39-117) U/L Troponin I High Sens 8.4 7.5 (<3.5-35.0) ng/L Total Protein 8.7 H (6.5-8.0) g/dL Albumin 4.7 (3.5-5.0) g/dL Lipase 19 (8-78) U/L Beta-Hydroxybutyrate 0.25 (0.02-0.27) mmol/L Urine Color Urine Appearance Urine pH (5.0-9.0) Ur Specific Broadbent (1.005-1.025) Urine Protein (Neg-Trace) mg/dL Urine Glucose (UA) (Negative) mg/dL Urine Ketones (Negative) mg/dL Urine Blood (Negative) Urine Nitrite (Negative) Ur Leukocyte Esterase (Negative) Urine RBC (0-2) /HPF Urine WBC (0-5) /HPF Ur Squamous Epith Cells (0-2) /HPF Urine Bacteria (None Seen) Hyaline Casts (0-2) /LPF Granular Casts Influenza Type A (PCR) NEGATIVE (Negative) Influenza Type B (PCR) NEGATIVE (Negative) RSV RNA Qual (PCR) NEGATIVE (Negative) SARS-CoV-2 RNA (RT-PCR) NEGATIVE (Negative) 02/24/24 02/24/24 Range/Units 11:20 14:09 WBC (4.8-10.8) X10*3/uL RBC (4.60-5.80) X10*6/uL Hgb (14.0-18.0) g/dl Hct (42.0-52.0) % MCV (80.0-98.0) fL MCH (27.0-33.0) pg MCHC (31.0-36.0) g/dl RDW (11.0-16.0) % Plt Count (160-400) X10*3/uL MPV (9.4-12.4) fL Immature Gran % (Auto) (0.0-0.4) % Neut % (Auto) (45-73) % Lymph % (Auto) (20-40) % [place] % (Auto) (2-11) % Eos % (Auto) (0-4) % Baso % (Auto) (0-2) % Lymph # (Auto) (1.2-4.9) X10*3/uL [place] # (Auto) (0.1-1.2) X10*3/uL Eos # (Auto) (0.0-0.4) X10*3/uL Baso # (Auto) (0.0-0.2) X10*3/uL Abs Immat Gran (auto) (0.00-0.03) X10*3/uL Absolute Neuts (auto) (2.0-8.3) x10*3/uL Absolute Nucleated RBC (0.0-0.012) X10*3/uL Nucleated RBC % (auto) (0.0-0.2) /100WBC Sodium 142 143 (135-145) mmol/L Potassium 3.6 3.6 (3.3-5.1) mmol/L Chloride 110 H 108 (96-108) mmol/L Carbon Dioxide 22 25 (22-29) mmol/L Anion Gap 14 14 (12-20) BUN 17 H 16 (9-16) mg/dL Creatinine 1.54 H 1.47 H (0.5-1.4) mg/dL Estim Creat Clear Calc 57.2 59.9 Estimated GFR 47 50 Random Glucose 175 H 162 H (60-115) mg/dL Lactic Acid (0.5-2.0) mmol/L Calcium 9.4 D 9.4 (8.4-10.2) mg/dL Magnesium (1.6-2.6) mg/dL Total Bilirubin (0.0-1.0) mg/dL AST (5-37) U/L ALT (0-40) U/L Alkaline Phosphatase (39-117) U/L Troponin I High Sens (<3.5-35.0) ng/L Total Protein (6.5-8.0) g/dL Albumin (3.5-5.0) g/dL Lipase (8-78) U/L Beta-Hydroxybutyrate (0.02-0.27) mmol/L Urine Color Dark Yellow Urine Appearance Cloudy Urine pH 5.5 (5.0-9.0) Ur Specific Broadbent 1.025 (1.005-1.025) Urine Protein 300 (3+) H (Neg-Trace) mg/dL Urine Glucose (UA) 100 H (Negative) mg/dL Urine Ketones Trace (Negative) mg/dL Urine Blood Negative (Negative) Urine Nitrite Negative (Negative) Ur Leukocyte Esterase Negative (Negative) Urine RBC 0-2 (0-2) /HPF Urine WBC 0-5 (0-5) /HPF Ur Squamous Epith Cells 6-10 (0-2) /HPF Urine Bacteria None Seen (None Seen) Hyaline Casts >20 (0-2) /LPF Granular Casts Present Influenza Type A (PCR) (Negative) Influenza Type B (PCR) (Negative) RSV RNA Qual (PCR) (Negative) SARS-CoV-2 RNA (RT-PCR) (Negative) Independent Interpretation I performed an independent interpretation of an: EKG (My interpretation EKG sinus tachycardia rate of 103. WA interval 148. QTC 450. No significant change when compared to prior. No STEMI ) and Ultrasound Radiology Impression Discussion of test interpretation with radiology: I have reviewed the radiologist's reading. External Record Review External record reviewed: Inpatient record, Office record, Outpatient record, Prior outpatient labs, Prior outpatient radiology, Primary care record and Outside ED record Tests considered The following testing was considered but not selected: As above Prescription Management I considered prescription management with: Pain Medication Chronic Conditions Patient?s care impacted by: Diabetes Critical Care Time Critical Care Time Critical Care Time: Yes Total Critical Care Time: 45 Attestation: I have personally provided critical care time exclusive of time spent on separately billable procedures. Time includes review of lab data, radiology results, discussion with consultants, and monitoring for potential decompensation. Intervention performed as documented. Discharge Plan Discharge Clinical Impression: EDMUND (acute kidney injury), Nausea & vomiting Patient Disposition: Home, Self-Care Instructions: Acute Kidney Injury (DC), Acute Nausea and Vomiting (ED) Additional Instructions: Your blood work showed acute kidney injury, suspected from dehydration. This can also be associated with Ozempic use. We are worried Ozempic it is causing her symptoms and kidney injury. Please call your PCP and inform them of this/you need very close follow-up Make sure increasing fluid intake, drink plenty of water If persistent or worsening symptoms, you are unable to eat or drink have persistent nausea/vomiting or diarrhea or pain return to the emergency department Prescriptions: No Action metformin 500 mg tablet 1 tab PO BID atorvastatin 20 mg tablet 1 tab PO DAILY chlorthalidone 50 mg tablet 1 tab PO QAM Trulicity 1.5 mg/0.5 mL pen injector 0.5 ml subcut QWEEK (DME) FreeStyle Lite Strips Strip Qty: 100 0RF Rx Instructions: test daily before breakfast (DME) blood-glucose meter [FreeStyle Lite Meter] Kit Qty: 1 0RF Rx Instructions: As Directed alcohol swabs Pads, Medicated 1 pad TOPICAL QIDACHS Qty: 100 0RF Rx Instructions: Use four times a day or as directed. insulin glargine [Lantus Solostar U-100 Insulin] 100 unit/mL (3 mL) insulin pen 12 unit SUBCUT DAILY Qty: 15 0RF (DME) pen needle, diabetic 32 gauge x 1/4 needle Qty: 100 0RF Rx Instructions: daily (DME) lancets [FreeStyle Lancets] 28 gauge misc Qty: 100 0RF Rx Instructions: test once daily losartan-hydrochlorothiazide 100-25 mg tablet 1 tab PO DAILY Referrals: Name,MD Peyman [Primary Care Provider] - 2 days Print Language: Hungarian
[2024-02-24 09:41] LABS: Troponin-I High Sensitivity 8.4 ng/L (<3.5-35.0)
[2024-02-24] MEDS: Lactated Ringers 1,000 ML 999 ML IV ×2 (09:58→12:08)
[2024-02-24] MEDS: cefTRIAXone sodium 1 GM in 0.9 % Sodium Chloride 50 ML IV (10:00)
[2024-02-24 10:30] LABS: Lactic Acid 1.6 mmol/L (0.5-2.0)
[2024-02-24 10:40] LABS: Troponin-I High Sensitivity 7.5 ng/L (<3.5-35.0)
[2024-02-24 11:39] LABS: Anion Gap 14 (12-20); Blood Urea Nitrogen 17 mg/dL (9-16); Calcium 9.4 mg/dL (8.4-10.2); Carbon Dioxide 22 mmol/L (22-29); Chloride 110 mmol/L (96-108); Creatinine Clr Calc Pharmacy 57.2; Estimated Glomerular Filt Rate 47; Glucose Random 175 mg/dL (60-115); Potassium 3.6 mmol/L (3.3-5.1); Sodium 142 mmol/L (135-145)
--- NOTE | 2024-02-24 12:08 | PC.NURSE ---
patient asked if able to provide urine sample and states has no urge to urinate yet. only scant sample provided earlier and not enough to test. New cup at bedside for when pt is able.
[2024-02-24 12:10] VITALS: BP 121/81; PULSE 96; RESP 18; TEMP 36.8; O2SAT 95
[2024-02-24 13:45] LABS: Beta-Hydroxybutyrate 0.25 mmol/L (0.02-0.27); Magnesium 2.3 mg/dL (1.6-2.6)
[2024-02-24 14:05] VITALS: BP 126/82; PULSE 91; RESP 16; O2SAT 99
[2024-02-24 14:18] LABS: Appearance Urine Cloudy; Color Urine Dark Yellow; Glucose Urine UA 100 mg/dL (Negative); Leukocyte Esterase Urine Negative (Negative); Nitrite Urine Negative (Negative); PH 5.5 (5.0-9.0); Specific Gravity - Urine 1.025 (1.005-1.025); UMIC TRIGGER UACC YES; Urine Blood Negative (Negative); Urine Ketones Trace mg/dL (Negative); Urine Protein 300 (3+) mg/dL (Neg-Trace)
[2024-02-24 14:29] LABS: Anion Gap 14 (12-20); Blood Urea Nitrogen 16 mg/dL (9-16); Calcium 9.4 mg/dL (8.4-10.2); Carbon Dioxide 25 mmol/L (22-29); Chloride 108 mmol/L (96-108); Creatinine Clr Calc Pharmacy 59.9; Estimated Glomerular Filt Rate 50; Glucose Random 162 mg/dL (60-115); Potassium 3.6 mmol/L (3.3-5.1); Sodium 143 mmol/L (135-145)
[2024-02-24 14:31] LABS: Bacteria Urine None Seen (None Seen); Granular Casts Urine Present; Hyaline Casts Urine >20 /LPF (0-2); RBC Urine 0-2 /HPF (0-2); WBC Urine 0-5 /HPF (0-5)
[2024-02-24 15:40] VITALS: BP 121/67; PULSE 87; RESP 18; TEMP 37.1; O2SAT 98
== END 2024-02-24 15:41 | disposition home or self-care (01) ==
PROVIDERS: Physician Assistant; Emergency Provider Emergency Medicine Emergency Medical Services; PCP Internal Medicine Geriatric Medicine
DX: N17.9 Acute kidney failure, unspecified (principal); R00.0 Tachycardia, unspecified; R11.2 Nausea with vomiting, unspecified; I10 Essential (primary) hypertension; R10.13 Epigastric pain; E11.9 Type 2 diabetes mellitus without complications; Z03.818 Encounter for observation for suspected exposure to other biological agents ruled out; Z79.899 Other long term (current) drug therapy; Z79.4 Long term (current) use of insulin
CPT/HCPCS: 0241U; 36415; 76705; 80048; 80053; 81001; 82010; 83605; 83690; 83735; 84484; 85025; 87040; 93005; 96361; 96374; 96375; 99285; J0696; J2270; J2405; J7120